=== PATIENT | female | born 1955 | race Two or more races ===

== ENCOUNTER 2016-10-06 18:25 | Emergency (ER) | payer OTHER ==
[2016-10-06 18:38] VITALS: BP 153/82; PULSE 91; TEMP 99.5; BMI 26.6
--- NOTE | 2016-10-06 21:13 | PDOC ---
History of Present Illness - General History Source: Patient Exam Limitations: No Limitations - History of Present Illness Initial Comments: 10/06/16 21:32 The patient is a 61 year old female with no significant past medical history who presents to the ED 5 days of nausea, vomiting, and diarrhea. Patient also reports associated abdominal pain and bloating. States her symptoms are intermittent. Patient reports her last meal was a chicken parmesan, which was 5 days ago, prior to when her symptoms. Since then she has had a decreased appetite. Patient reports nausea, but is still able to intake some fluids. States in the morning she has form stools and as the day goes by, her stool gets softer and softer. In the last 3 days, she has had 3 bowel movements and 2 bowel movements in the past day. The patient denies fever, chills, cough, SOB, chest pain, and palpitations. The patient denies dysuria, hematuria, urgency, and frequency. Allergies: NKDA Social History: No alcohol, tobacco, or drug use reported. Past Surgical History: Denies PCP: n/a <Sasha Gambino - Last Filed: 10/06/16 21:32> - General History Source: Patient <Sebastian Henderson - Last Filed: 10/07/16 00:26> - General Chief Complaint: Vomiting/Diarrhea Stated Complaint: PCP SENT/ABDOMINAL PAIN Time Seen by Provider: 10/06/16 21:09 Past History <Sasha Gambino - Last Filed: 10/06/16 21:32> - Psycho/Social/Smoking Cessation Hx Anxiety: No Suicidal Ideation: No Smoking History: Never smoked Have you smoked in the past 12 months: No Information on smoking cessation initiated: No Hx Alcohol Use: Yes Drug/Substance Use Hx: No Substance Use Type: Alcohol <Jose AlejandromichaelSebastian - Last Filed: 10/07/16 00:26> - Past Medical History Allergies/Adverse Reactions: Allergies Allergy/AdvReac Type Severity Reaction Status Date / Time No Known Allergies Allergy Verified 10/06/16 18:35 Home Medications: Ambulatory Orders Levofloxacin [Levaquin -] 500 mg PO DAILY #7 tablet 10/07/16 Metronidazole [Flagyl] 500 mg PO BID #14 tablet 10/07/16 Ondansetron [Zofran *Odt*] 4 mg SL TID #30 od.tablet 10/07/16 Oxycodone HCl/Acetaminophen [Percocet 5-325 mg Tablet] 1 - 2 tab PO Q6H #20 tablet MDD 4 10/07/16 Review of Systems - Review of Systems Able to Perform ROS?: Yes Comments:: 10/06/16 21:32 CONSTITUTIONAL: +decreased appetite Absent: fever, no chills, no fatigue EYES: Absent: visual changes ENT: Absent: ear pain, no sore throat CARDIOVASCULAR: Absent: chest pain, no palpitations RESPIRATORY: Absent: cough, no SOB GI: +abdominal pain, nausea, vomiting, diarrhea, bloating GENITOURINARY: Absent: dysuria, no frequency, no hematuria MUSCULOSKELETAL: Absent: back pain, no arthralgia, no myalgia SKIN: Absent: rash NEURO: Absent: headache <Sasha Gambino - Last Filed: 10/06/16 21:32> *Physical Exam - Vital Signs Last Vital Signs Temp Pulse Resp BP Pulse Ox 99.5 F 91 H 18 153/82 99 10/06/16 18:35 10/06/16 18:35 10/06/16 18:35 10/06/16 18:35 10/06/16 18:35 - Physical Exam Comments: 10/06/16 21:32 GENERAL: Well developed, well nourished. Awake and alert. Mild distress. HEENT: Normocephalic, atraumatic. PERRL, EOM intact. Slightly dry mucous membranes. CARDIOVASCULAR: Normal S1, S2. Regular rate and rhythm. PULMONARY: Clear to auscultation bilaterally. ABDOMINAL: Soft. Mildly diffuse tenderness. Mildly distended. No rebound or guarding. No organomegaly. Normoactive bowel sounds. EXTREMITIES: Normal ROM in all four extremities. No gross deformities. SKIN: Warm, dry. No rash NEUROLOGICAL: No focal neurological deficits. <Sasha Gambino - Last Filed: 10/06/16 21:32> - Vital Signs Last Vital Signs Temp Pulse Resp BP Pulse Ox 99.5 F 91 H 18 153/82 99 10/06/16 18:35 10/06/16 18:35 10/06/16 18:35 10/06/16 18:35 10/06/16 18:35 <Sebastian Henderson - Last Filed: 10/07/16 00:26> ED Treatment Course - LABORATORY CBC & Chemistry Diagram: 10/06/16 22:10 10/06/16 22:10 <Sebastian Henderson - Last Filed: 10/07/16 00:26> Medical Decision Making - Medical Decision Making 10/07/16 00:24 Dr. Henderson: The scribe's documentation has been prepared under my direction and personally reviewed by me in its entirery. I confirm that the note above accurately reflects all work, treatment, procedures, and medical decision making performed by me. Pt advised to return if symptoms don't improved as [employer] is going down and we won't be able to get studies easily. Pt give antibiotics to treatment for probable Colitis. <Sebastian Henderson - Last Filed: 10/07/16 00:26> *DC/Admit/Observation/Transfer - Attestations Scribe Attestion: 10/06/16 21:33 Documentation prepared by Sasha Gambino, acting as medical technicians for Sebastian Henderson DO. <Sasha Gambino - Last Filed: 10/06/16 21:32> - Discharge Dispostion Admit: No <Sebastian Henderson - Last Filed: 10/07/16 00:26> Diagnosis at time of Disposition: Colitis Abdominal pain Qualifiers: Abdominal location: generalized Qualified Code(s): R10.84 - Generalized abdominal pain - Discharge Dispostion Disposition: HOME Condition at time of disposition: Stable - Referrals Referrals: Tanmay Alexis MD [Staff Physician] - Jer Jules MD [Staff Physician] - - Patient Instructions Printed Discharge Instructions: DI for Colitis, DI for Abdominal Pain-Adult Additional Instructions: Please return if symptoms don't improve so a ct scan can be done. Clinically it appears that you have a Colitis based on your symptoms
[2016-10-06] MEDS ORDERED: SODIUM CHLORIDE 1,000 ML IV STA ×2 (21:16)
[2016-10-06 22:34] LABS: BASOPHIL 0.6 % (0-2.0); EOSINOPHIL 2.5 % (0-4.5); MCHC 33.6 g/dl (32.0-36.0); MEAN CELL VOLUME 89.2 fl (80-96); MEAN PLT VOLUME 9.2 fl (7.5-11.1); NEUTROPHILS 63.1 % (42.8-82.8); PLATELET COUNT 242 K/MM3 (134-434); RDW 13.1 % (11.6-15.6); WHITE BLOOD COUNT 9.5 K/mm3 (4.0-10.0)
[2016-10-06 22:38] LABS: URINE APPEARANCE CLEAR; URINE BILIRUBIN NEGATIVE (NEGATIVE); URINE BLOOD 1+ (NEGATIVE); URINE COLOR LTYELLOW; URINE GLUCOSE (UA) NEGATIVE (NEGATIVE); URINE KETONE NEGATIVE (NEGATIVE); URINE LEUK ESTERASE TRACE (NEGATIVE); URINE NITRITE NEGATIVE (NEGATIVE); URINE PROTEIN NEGATIVE (NEGATIVE); URINE UROBILINOGEN NEGATIVE mg/dL (0.2-1.0)
[2016-10-06 22:55] LABS: URINE MUCUS RARE; URINE RBC 1 /hpf (0-3); URINE WBC 2 /hpf (3-5)
[2016-10-06 23:01] LABS: ANION GAP 11 (8-16); CALCIUM 9.4 mg/dL (8.5-10.1); CO2 26 mmol/L (21-32); CREATININE 0.7 mg/dL (0.55-1.02); GLUCOSE,RANDOM 101 mg/dL (74-106); MAGNESIUM 2.5 mg/dL (1.8-2.4); SGOT/AST 12 U/L (15-37); SGPT/ALT 25 U/L (12-78); TOT PROT 7.9 g/dl (6.4-8.2)
[2016-10-06 23:02] LABS: ALK PHOS 72 U/L (45-117)
[2016-10-07] MEDS ORDERED: metroNIDAZOLE 250 MG TABLET PO ONE (00:18)
[2016-10-07] MEDS ORDERED: LEVOFLOXACIN 500 MG TABLET (FP) PO ONE (00:18)
[2016-10-07] MEDS ORDERED: metroNIDAZOLE 250 MG TABLET ONE (00:33)
[2016-10-07] MEDS ORDERED: LEVOFLOXACIN 500 MG TABLET (FP) ONE (00:33)
== END 2016-10-07 00:34 | disposition home or self-care (01) ==
LOC: JER 18:25
PROC: 3E0337Z Introduction of Electrolytic and Water Balance Substance into Peripheral Vein, Percutaneous Approach (ICD-10-PCS; principal; 2016-10-06)
DX: K52.9 Noninfective gastroenteritis and colitis, unspecified (principal)
CPT/HCPCS: 36415; 80053; 81003; 81015; 83690; 83735; 84703; 85025; 99281-25

== ENCOUNTER 2016-10-09 12:13 | Emergency (ER) | payer OTHER ==
[2016-10-09 12:42] VITALS: TEMP 98.5; BMI 27.4
--- NOTE | 2016-10-09 13:09 | PDOC ---
History of Present Illness - General Chief Complaint: Pain, Acute Stated Complaint: PAIN, REVISIT Time Seen by Provider: 10/09/16 12:54 History Source: Patient Exam Limitations: No Limitations - History of Present Illness Initial Comments: 10/09/16 14:49 The patient is a 61 year old female who was seen in This ED 2 days ago for 5 days of nausea, vomiting, and diarrhea. Patient was diagnosed with colitis and prescribed flagyl and levofloxacin but reports continued diffuse abdominal pressure-like pain and bloating. Patient reports nausea, but is still able to intake some fluids. has bowel movements 3x a day, no blood, normal consistency. The patient denies fever, chills, cough, SOB, chest pain, and palpitations. The patient denies dysuria, hematuria, urgency, and frequency. Past History - Past Medical History Allergies/Adverse Reactions: Allergies Allergy/AdvReac Type Severity Reaction Status Date / Time No Known Allergies Allergy Verified 10/09/16 12:40 Home Medications: Ambulatory Orders Levofloxacin [Levaquin -] 500 mg PO DAILY #7 tablet 10/07/16 Metronidazole [Flagyl] 500 mg PO BID #14 tablet 10/07/16 Ondansetron [Zofran *Odt*] 4 mg SL TID #30 od.tablet 10/07/16 Oxycodone HCl/Acetaminophen [Percocet 5-325 mg Tablet] 1 - 2 tab PO Q6H #20 tablet MDD 4 10/07/16 - Psycho/Social/Smoking Cessation Hx Anxiety: No Suicidal Ideation: No Smoking History: Never smoked Have you smoked in the past 12 months: No Hx Alcohol Use: Yes Drug/Substance Use Hx: No Substance Use Type: Alcohol Review of Systems - Review of Systems Constitutional: No: Symptoms Reported HEENTM: No: Symptoms Reported Respiratory: No: Symptoms reported Cardiac (ROS): No: Symptoms Reported ABD/GI: Yes: See HPI : No: Symptoms Reported Musculoskeletal: No: Symptoms Reported Integumentary: No: Symptoms Reported Neurological: No: Symptoms reported *Physical Exam - Vital Signs Last Vital Signs Temp Pulse Resp BP Pulse Ox 98.5 F 84 19 127/66 98 10/09/16 12:40 10/09/16 12:40 10/09/16 12:40 10/09/16 12:40 10/09/16 12:40 - Physical Exam General Appearance: Yes: Nourished HEENT: positive: EOMI, [place] Neck: positive: Trachea midline, Normal Thyroid. negative: Tender Respiratory/Chest: positive: Lungs Clear, Normal Breath Sounds. negative: Chest Tender Cardiovascular: positive: Regular Rhythm, Regular Rate, S1, S2 Gastrointestinal/Abdominal: positive: Normal Bowel Sounds, Soft, Protuberent. negative: Tender, Rebound, Tenderness ED Treatment Course - LABORATORY CBC & Chemistry Diagram: 10/09/16 13:25 10/09/16 13:25 Medical Decision Making - Medical Decision Making 10/09/16 14:56 61 returns to the ED with continued abdominal pain and bloatedness. Patient evaluated with CTAP with iv and PO contrast. 10/09/16 17:49 iv morphine and po motrin for pain control. 10/09/16 20:30 Bedside ultrasound performed by myself, DIRECTOR OF AGRICULTURE Augustin and Dr. Daniel showing gallstone at neck. CT abdomen positive for liver cyst, cholelithiasis and diverticulosis. Patient discharged, advised to follow up with Donell Amador, GI and discontinue her antibiotics. *DC/Admit/Observation/Transfer Diagnosis at time of Disposition: Abdominal pain, Abdominal pain in female - Discharge Dispostion Disposition: HOME Admit: No - Referrals Referrals: Kobi Marley MD [Staff Physician] - - Patient Instructions Printed Discharge Instructions: DI for Abdominal Pain-Adult
[2016-10-09 14:09] LABS: BASOPHIL 0.8 % (0-2.0); MCH 29.4 pg (25.7-33.7); MCHC 32.6 g/dl (32.0-36.0); MEAN CELL VOLUME 90.2 fl (80-96); MEAN PLT VOLUME 8.3 fl (7.5-11.1); NEUTROPHILS 61.3 % (42.8-82.8); PLATELET COUNT 278 K/MM3 (134-434); RDW 13.1 % (11.6-15.6); WHITE BLOOD COUNT 5.9 K/mm3 (4.0-10.0)
[2016-10-09 14:50] LABS: ALBUMIN 3.8 g/dl (3.4-5.0); ANION GAP 7 (8-16); CALCIUM 9.1 mg/dL (8.5-10.1); CO2 29 mmol/L (21-32); GLUCOSE,RANDOM 89 mg/dL (74-106)
[2016-10-09 14:53] LABS: BILIRUBIN,TOTAL 0.5 mg/dL (0.2-1.0); CREATININE 0.7 mg/dL (0.55-1.02); SGPT/ALT 27 U/L (12-78); TOT PROT 8.2 g/dl (6.4-8.2)
[2016-10-09 14:55] LABS: ALK PHOS 72 U/L (45-117); TROPONIN I < 0.02 ng/ml (0.00-0.05)
[2016-10-09 14:56] LABS: CPK 132 IU/L (26-192); SGOT/AST 29 U/L (15-37)
--- NOTE | 2016-10-09 16:00 | PDOC ---
Attending Attestation - Resident Resident Name: Han Alvarado - ED Attending Attestation I have performed the following: I have examined & evaluated the patient, The case was reviewed & discussed with the resident, I agree w/resident's findings & plan, Exceptions are as noted - HPI HPI: 10/09/16 15:56 "Patient is a 61 year old female with no significant past medical history who presents to the ED with complaints of bloating and stomach pain starting 1 week prior to arrival. Patient reports eating eggplant and salad at restaurant last and subsequently developed vomiting and diarrhea for two days. She denies F/C. States that the vomiting and diarrhea resolved, but she reports still feeling nauseous. Patient reports looking 9 months yesterday secondary to bloating. She was seen in this ER 2 days ago and prescribed abx for possible colitis. Reports that she has been taking the abx, but she has not noticed any improvement in her bloating. Pt denies prior surgical history. Still having normal BMs, still passing flatus. Denies chest pain, SOB, dizziness. Denies fever, chills, vomiting (since last week). Denies any medication taken, surgeries. Denies any other symptoms. " - Physicial Exam PE: 10/09/16 15:58 "GENERAL: Awake, alert, and fully oriented, in no acute distress HEAD: No signs of trauma EYES: PERRLA, EOMI, sclera anicteric, conjunctiva clear ENT: Auricles normal inspection, hearing grossly normal, nares patent, oropharynx clear without exudates. Moist mucosa NECK: Normal ROM, supple, no lymphadenopathy, JVD, or masses LUNGS: Breath sounds equal, clear to auscultation bilaterally. No wheezes, and no crackles HEART: Regular rate and rhythm, normal S1 and S2, no murmurs, rubs or gallops ABDOMEN: + Mildly distended abdomen. No tenderness to palpations. Soft, nontender, normoactive bowel sounds. No guarding, no rebound. No masses EXTREMITIES: Normal range of motion, no edema. No clubbing or cyanosis. No cords, erythema, or tenderness NEUROLOGICAL: Cranial nerves II through XII grossly intact. Normal speech, normal gait SKIN: Warm, Dry, normal turgor, no rashes or lesions noted." - Medical Decision Making 10/09/16 15:59 61 F with abdominal bloating and nausea. Pt with benign abdominal exam. Pt had N /V/D last week, suggestive of viral gastroenteritis. Pt's symptoms today are likely sequelae of this. However, given duration of symptoms, will obtain CTAP to r/o acute abdominal process. - labs - CTAP
[2016-10-09] MEDS ORDERED: IBUPROFEN 400 MG TABLET (FP) PO ONE ×2 (17:22→17:28)
[2016-10-09 17:23] VITALS: BP 150/87; PULSE 71
[2016-10-09] MEDS ORDERED: morphine CARPU-JECT 2 MG/1 ML DISP.SYRIN IVPUSH ONE (17:24)
[2016-10-09] MEDS ORDERED: morphine CARPU-JECT 2 MG/1 ML DISP.SYRIN ONE (17:28)
--- NOTE | 2016-10-09 20:29 | PDOC ---
*Physical Exam - Vital Signs Last Vital Signs Temp Pulse Resp BP Pulse Ox 98.5 F 71 17 150/87 97 10/09/16 12:40 10/09/16 17:22 10/09/16 17:22 10/09/16 17:22 10/09/16 17:22 - Physical Exam General Appearance: Yes: Nourished, Appropriately Dressed Neck: positive: Trachea midline Respiratory/Chest: positive: Lungs Clear, Normal Breath Sounds Cardiovascular: positive: Regular Rhythm, Regular Rate Gastrointestinal/Abdominal: positive: Normal Bowel Sounds, Flat, Soft. negative : Tender ED Treatment Course - LABORATORY CBC & Chemistry Diagram: 10/09/16 13:25 10/09/16 13:25 - ADDITIONAL ORDERS Additional order review: Laboratory Results 10/09/16 10/09/16 13:25 13:25 Sodium 138 Potassium 5.3 H D Chloride 102 Carbon Dioxide 29 Anion Gap 7 L BUN 16 D Creatinine 0.7 Creat Clearance w eGFR > 60 Random Glucose 89 Calcium 9.1 Total Bilirubin 0.5 D AST 29 D ALT 27 Alkaline Phosphatase 72 Creatine Kinase Cancelled 132 Troponin I Cancelled < 0.02 Total Protein 8.2 Albumin 3.8 10/09/16 13:25 RBC 4.15 MCV 90.2 MCHC 32.6 RDW 13.1 MPV 8.3 Neutrophils % 61.3 Lymphocytes % 27.1 Monocytes % 8.8 Eosinophils % 2.0 Basophils % 0.8 - Medications Given in the ED: ED Medications Discontinued Medications Generic Name Dose Route Start Last Admin Trade Name Freq PRN Reason Stop Dose Admin Ibuprofen 800 mg 10/09/16 17:22 10/09/16 17:35 Motrin - PO 10/09/16 17:23 800 mg ONCE ONE Administration Morphine Sulfate 2 mg 10/09/16 17:24 10/09/16 17:36 Morphine Injection - IVPUSH 10/09/16 17:25 2 mg ONCE ONE Administration Medical Decision Making - Medical Decision Making 10/09/16 20:26 focused ED ultrasound RUQ , indication abd pain findings: gallbladder scanned in two planes. large 2 cm stone noted, mobile with rolling patient. no wall thickening edema or pericholecystic fluid noted. negative sonographics casillas's sign. wall measured 3.9mm CBD 6.1mm impression: cholelithiasis with single large 2 cm gallstone, nonimpacted. cirilli d/w pt and her sister at length regarding recent bloating sensation. ct reviewed. no signs of colitis or or diverticulitis. noted small adnexal cyst, and cyst in the liver. recommend discontinueing antiobtiocs. recommend [facility] [employer] and GI followup. abd exam nontender. will dc home. *DC/Admit/Observation/Transfer Diagnosis at time of Disposition: Abdominal pain - Discharge Dispostion Disposition: HOME Condition at time of disposition: Improved Admit: No
--- NOTE | 2016-10-11 21:49 | EKG ---
Test Reason : Blood Pressure : / mmHG Vent. Rate : 067 BPM Atrial Rate : 067 BPM P-R Int : 146 ms QRS Dur : 092 ms QT Int : 408 ms P-R-T Axes : 052 011 041 degrees QTc Int : 431 ms NORMAL SINUS RHYTHM NORMAL ECG NO PREVIOUS ECGS AVAILABLE Confirmed by ADONIS GRACE MD ([id number]) on 10/11/2016 9:48:52 PM Referred By: Confirmed By:ADONIS GRACE MD
== END 2016-10-09 20:40 | disposition home or self-care (01) ==
LOC: JER 12:13
PROC: 3E033NZ Introduction of Analgesics, Hypnotics, Sedatives into Peripheral Vein, Percutaneous Approach (ICD-10-PCS; principal; 2016-10-09)
DX: K80.20 Calculus of gallbladder without cholecystitis without obstruction (principal)
CPT/HCPCS: 36415; 74177-TC; 80053; 84484; 85025; 93005; 93010; 99284-25

== ENCOUNTER 2019-02-25 09:24 | Inpatient (IN) | payer BC, OTHER ==
[2019-02-25 09:30] VITALS: BMI 27.4
[2019-02-25] MEDS ORDERED: ACETAMINOPHEN 1000 MG/100 ML VIAL (NON FORMULARY) IVPB ONE (09:41)
[2019-02-25] MEDS ORDERED: FAMOTIDINE 20 MG/50 ML IVPB 20 MG/50 ML MG IVPB ONE ×2 (09:41→09:56)
[2019-02-25] MEDS ORDERED: SODIUM CHLORIDE 1,000 ML IV STA (09:41)
[2019-02-25] MEDS ORDERED: ONDANSETRON 4 MG/2 ML VIAL IVPB ONE (09:41)
--- NOTE | 2019-02-25 09:46 | PDOC ---
Attending Attestation - Resident Resident Name: Coco Singh - ED Attending Attestation I have performed the following: I have examined & evaluated the patient, The case was reviewed & discussed with the resident, I agree w/resident's findings & plan, Exceptions are as noted - HPI HPI: 02/25/19 09:44 Ms Lucero is a 63 yo F who presents to the ER with a complaint of abdominal pain , n/v x2 days. Pain began night, and since then has been constant (+) emesis x 2 Pt notes RLQ pain and lower back pain Seen at [facility] yesterday She was seen at the urgent care yesterday and sent for an out patient CT scan CT performed on 02/24 revealed: - Hepatic cysts - GB wall thickening, no stones seen - spleen nml - Right adnexal cyst - Appendix unremarkable 02/25/19 10:31 Last BM was yesterday. Denies fever, chills, chest pain, sob, abdominal surgeries, weakness, numbness/tingling, urinary symptoms. 02/25/19 13:03 - Physicial Exam PE: 02/25/19 09:44 GENERAL: The patient is in no acute distress. ENT: Ears normal, nares patent, oropharynx clear without exudates. Moist mucous membranes. NECK: Normal range of motion, supple LUNGS: Breath sounds equal, clear to auscultation bilaterally. No wheezes, and no crackles. HEART:Regular rate and rhythm, normal S1 and S2 without murmur, rub or gallop. ABDOMEN: Soft, RUQ tenderness to palpation, involuntary guarding or rebound EXTREMITIES: Normal range of motion, no edema. NEUROLOGICAL: Cranial nerves II through XII grossly intact. Normal speech. No focal neurological deficits. SKIN: Warm, Dry, normal turgor, no rashes or lesions noted. - Medical Decision Making 02/25/19 13:05 Laboratory Tests 02/25/19 02/25/19 02/25/19 10:00 10:00 10:00 WBC 12.4 H Hgb 12.6 Hct 38.8 Plt Count 198 D BUN 18.0 Creatinine 0.9 Troponin I < 0.02 Urine Blood Urine Nitrite Ur Leukocyte Esterase 02/25/19 11:36 WBC Hgb Hct Plt Count BUN Creatinine Troponin I Urine Blood Negative Urine Nitrite Negative Ur Leukocyte Esterase 1+ H US: GB with cholelithiasis, gb wall thickening, small PCCF 02/25/19 13:06 ABX ordered Call placed to Hospitalist for admission Consult to surgery Clinical impression: cholecystitis, initial presentation
[2019-02-25] MEDS ORDERED: ACETAMINOPHEN INJECTION 100 ML IVPB ONE (09:55)
[2019-02-25] MEDS ORDERED: ONDANSETRON 4 MG/2 ML VIAL ONE (09:55)
[2019-02-25 10:52] LABS: BASO % 0.3 % (0-2.0); EOS % 0.4 % (0-4.5); HEMATOCRIT 38.8 % (32.4-45.2); HEMOGLOBIN 12.6 GM/dL (10.7-15.3); LYMPH % 12.4 % (8-40); MCH 29.3 pg (25.7-33.7); MCHC 32.5 g/dl (32.0-36.0); MEAN CELL VOLUME 90.3 fl (80-96); MEAN PLT VOLUME 9.8 fl (7.5-11.1); MONO % 10.6 % (3.8-10.2); NEUT % 76.3 % (42.8-82.8); PLATELET COUNT 198 K/MM3 (134-434); RBC 4.29 M/mm3 (3.60-5.2); WHITE BLOOD COUNT 12.4 K/mm3 (4.0-10.0)
[2019-02-25 11:08] LABS: ALBUMIN 3.9 g/dl (3.4-5.0); BILIRUBIN,TOTAL 1.8 mg/dL (0.2-1); CALCIUM 9.2 mg/dL (8.5-10.1); CREATININE 0.9 mg/dL (0.55-1.3); POTASSIUM 4.3 mmol/L (3.5-5.1); TOT PROT 7.5 g/dl (6.4-8.2)
--- NOTE | 2019-02-25 11:08 | PDOC ---
History of Present Illness - General Chief Complaint: Nausea/Vomiting Stated Complaint: VOMITING Time Seen by Provider: 02/25/19 09:36 History Source: Patient Exam Limitations: No Limitations - History of Present Illness Initial Comments: 02/25/19 12:24 63y F with no significant PMH presenting to ED with complaints of lower abdominal pain, n/v x2 days. Pain started night and has been constant. Patient has vomited twice (nbnb). Pain is sharp, in the RLQ and lower back. She went to [facility] yesterday and had a CT done which showed gall stones, dilated cbd, thickened gb wall and a complex cyst in the R ovary. Pt has been taking Pepcid and Tylenol for the pain but it has not helped. Pt has not vomited today , had coffee and toast for breakfast at 730am. Last BM was yesterday. Denies fever, chills, chest pain, sob, abdominal surgeries, weakness, numbness/tingling , urinary symptoms. PMD: none PSH: none PMH: none Allergies: nkda Social: denies Past History - Past Medical History Allergies/Adverse Reactions: Allergies Allergy/AdvReac Type Severity Reaction Status Date / Time No Known Allergies Allergy Verified 10/09/16 12:40 Home Medications: Ambulatory Orders NK [No Known Home Medication] 02/25/19 COPD: No - Surgical History Cardiac Surgery: No - Immunization History Immunization Up to Date: No - Psycho Social/Smoking Cessation Hx Smoking History: Never smoked Have you smoked in the past 12 months: No Information on smoking cessation initiated: No Hx Alcohol Use: No Drug/Substance Use Hx: No Substance Use Type: Alcohol *Physical Exam - Vital Signs Last Vital Signs Temp Pulse Resp BP Pulse Ox 98.8 F 89 16 124/72 99 02/25/19 09:28 02/25/19 09:28 02/25/19 09:28 02/25/19 09:28 02/25/19 09:28 ED Treatment Course - LABORATORY CBC & Chemistry Diagram: 02/25/19 10:00 02/25/19 10:00 - ADDITIONAL ORDERS Additional order review: 02/25/19 10:00 RBC 4.29 MCV 90.3 MCHC 32.5 RDW 13.0 MPV 9.8 D Neutrophils % 76.3 D Lymphocytes % 12.4 D Monocytes % 10.6 H Eosinophils % 0.4 Basophils % 0.3 - RADIOLOGY Radiology Studies Ordered: Category Date Time Status ABDOMEN US -LIMITED [US] Stat Ultrasound 02/25/19 10:43 Ordered TRANSVAGINAL ULTRASOUND US [US] Stat Ultrasound 02/25/19 10:43 Ordered - Medications Given in the ED: ED Medications Discontinued Medications Generic Name Dose Route Start Last Admin Trade Name Freq PRN Reason Stop Dose Admin Acetaminophen 1,000 mg 02/25/19 09:41 02/25/19 10:26 Ofirmev Injection - IVPB 02/25/19 09:42 1,000 mg ONCE ONE Administration Famotidine/Sodium Chloride 20 mg in 50 mls @ 100 mls/hr 02/25/19 09:41 10:00 Pepcid 20 Mg Premixed Ivpb - IVPB 02/25/19 10:10 100 mls/hr ONCE ONE Administration Sodium Chloride 1,000 mls @ 1,000 mls/hr 02/25/19 09:41 02/25/19 10:00 Normal Saline - IV 02/25/19 10:40 1,000 mls/hr ASDIR STA Administration Ondansetron HCl 4 mg 02/25/19 09:41 02/25/19 10:00 Zofran Injection IVPB 02/25/19 09:42 4 mg ONCE ONE Administration Discharge - Discharge Information Condition: Stable - Follow up/Referral - Patient Discharge Instructions - Post Discharge Activity
[2019-02-25 11:28] LABS: LIPASE 98 U/L (73-393)
[2019-02-25 11:55] LABS: EPI CELLS 0.8 /HPF (0-5/HPF); HYALINE CASTS 0 /lpf (0-8); PH,URINE 6.5 (5.0-8.0); URINE APPEARANCE CLEAR; URINE BACTERIA 8.2 /hpf (NEGATIVE); URINE BILIRUBIN NEGATIVE (NEGATIVE); URINE COLOR YELLOW; URINE GLUCOSE (UA) NEGATIVE (NEGATIVE); URINE KETONE NEGATIVE (NEGATIVE); URINE LEUK ESTERASE 1+ (NEGATIVE); URINE NITRITE NEGATIVE (NEGATIVE); URINE PROTEIN NEGATIVE (NEGATIVE); URINE RBC 3 /hpf (0-4); URINE WBC 5 /hpf (0-5)
[2019-02-25] MEDS ORDERED: CEFTRIAXONE 1 GM in DEXTROSE 5%-WATER - 100 ML IVPB ONE (12:34)
[2019-02-25] MEDS ORDERED: CEFTRIAXONE 1 GM/50 ML BAG ONE (12:57)
[2019-02-25] MEDS: DEXTROSE 5%-0.45% SALINE 1,000 ML IV SCH (13:42)
--- NOTE | 2019-02-25 15:09 | EKG ---
Test Reason : Blood Pressure : / mmHG Vent. Rate : 087 BPM Atrial Rate : 087 BPM P-R Int : 128 ms QRS Dur : 092 ms QT Int : 388 ms P-R-T Axes : 044 006 043 degrees QTc Int : 466 ms POOR DATA QUALITY, INTERPRETATION MAY BE ADVERSELY AFFECTED SINUS RHYTHM WITH OCCASIONAL PREMATURE VENTRICULAR COMPLEXES INCOMPLETE RIGHT BUNDLE BRANCH BLOCK BORDERLINE ECG WHEN COMPARED WITH ECG OF 09-OCT-2016 14:34, PREMATURE VENTRICULAR COMPLEXES ARE NOW PRESENT Confirmed by ISH GRIFFITH MD ([id number]) on 02/25/2019 3:08:36 PM Referred By: Confirmed By:ISH GRIFFITH MD
--- NOTE | 2019-02-25 17:50 | HP ---
CHIEF COMPLAINT: Abdominal pain PCP: None HISTORY OF PRESENT ILLNESS: 63y F with no significant PMH presenting to ED with complaints of lower abdominal pain, n/v x2 days. Pain started night and has been constant. Patient has vomited twice (nbnb). Pain is sharp, in the RLQ and lower back. She went to [facility] yesterday and had a CT done which showed gall stones, dilated cbd, thickened gb wall and a complex cyst in the R ovary. Pt has been taking Pepcid and Tylenol for the pain but it has not helped. Pt has not vomited today , had coffee and toast for breakfast at 730am. Last BM was yesterday. Denies fever, chills, chest pain, sob, abdominal surgeries, weakness, numbness/tingling , urinary symptoms. In the ER she had abdominal ultrasound done which shows acute cholecystitis and fluid around the gallbladder. ER course was notable for: (1) visit to urgent care center yesterday (2) abdominal CAT scan (3) recent pain Recent Travel: None PAST MEDICAL HISTORY: None PAST SURGICAL HISTORY: None Social History: Denies alcohol smoking or drug use Smoking: Alcohol: Drugs: Allergies No Known Allergies Allergy (Verified 10/09/16 12:40) HOME MEDICATIONS: Home Medications Medication Instructions Recorded NK [No Known Home Medication] 02/25/19 REVIEW OF SYSTEMS CONSTITUTIONAL: Absent: fever, chills, diaphoresis, generalized weakness, malaise, loss of appetite, weight change HEENT: Absent: rhinorrhea, nasal congestion, throat pain, throat swelling, difficulty swallowing, mouth swelling, ear pain, eye pain, visual changes CARDIOVASCULAR: Absent: chest pain, syncope, palpitations, irregular heart rate, lightheadedness , peripheral edema RESPIRATORY: Absent: cough, shortness of breath, dyspnea with exertion, orthopnea, wheezing, stridor, hemoptysis GASTROINTESTINAL: Positive abdominal pain vomiting and loss of appetite. GENITOURINARY: Absent: dysuria, frequency, urgency, hesitancy, hematuria, flank pain, genital pain MUSCULOSKELETAL: Absent: myalgia, arthralgia, joint swelling, back pain, neck pain SKIN: Absent: rash, itching, pallor HEMATOLOGIC/IMMUNOLOGIC: Absent: easy bleeding, easy bruising, lymphadenopathy, frequent infections ENDOCRINE: Absent: unexplained weight gain, unexplained weight loss, heat intolerance, cold intolerance NEUROLOGIC: Absent: headache, focal weakness or paresthesias, dizziness, unsteady gait, seizure, mental status changes, bladder or bowel incontinence PSYCHIATRIC: Absent: anxiety, depression, suicidal or homicidal ideation, hallucinations. PHYSICAL EXAMINATION Vital Signs - 24 hr 02/25/19 02/25/19 02/25/19 09:28 14:27 15:30 Temperature 98.8 F 98.1 F 98.1 F Pulse Rate 89 Pulse Rate [ 89 82 Left Radial] Respiratory 16 18 18 Rate Blood Pressure 124/72 Blood Pressure 107/59 L 118/54 L [Right Arm] O2 Sat by Pulse 99 97 97 Oximetry (%) GENERAL: Awake, alert, and fully oriented, in no acute distress. HEAD: Normal with no signs of trauma. EYES: Pupils equal, round and reactive to light, extraocular movements intact, sclera anicteric, conjunctiva clear. No lid lag. EARS, NOSE, THROAT: Ears normal, nares patent, oropharynx clear without exudates. Moist mucous membranes. NECK: Normal range of motion, supple without lymphadenopathy, JVD, or masses. LUNGS: Breath sounds equal, clear to auscultation bilaterally. No wheezes, and no crackles. No accessory muscle use. HEART: Regular rate and rhythm, normal S1 and S2 without murmur, rub or gallop. ABDOMEN: She tender right upper quadrant of abdomen and rebound slightly and guarding present bowel sounds are normal MUSCULOSKELETAL: Normal range of motion at all joints. No bony deformities or tenderness. No CVA tenderness. UPPER EXTREMITIES: 2+ pulses, warm, well-perfused. No cyanosis. No clubbing. No peripheral edema. LOWER EXTREMITIES: 2+ pulses, warm, well-perfused. No calf tenderness. No peripheral edema. NEUROLOGICAL: Cranial nerves II-XII intact. Normal speech. Normal gait. PSYCHIATRIC: Cooperative. Good eye contact. Appropriate mood and affect. SKIN: Warm, dry, normal turgor, no rashes or lesions noted, normal capillary refill. Laboratory Results - last 24 hr 02/25/19 02/25/19 02/25/19 10:00 10:00 10:00 WBC 12.4 H RBC 4.29 Hgb 12.6 Hct 38.8 MCV 90.3 MCH 29.3 MCHC 32.5 RDW 13.0 Plt Count 198 D MPV 9.8 D Absolute Neuts (auto) 9.4 H Neutrophils % 76.3 D Lymphocytes % 12.4 D Monocytes % 10.6 H Eosinophils % 0.4 Basophils % 0.3 Nucleated RBC % 0 Sodium 136 Potassium 4.3 Chloride 102 Carbon Dioxide 28 Anion Gap 7 L BUN 18.0 Creatinine 0.9 Est GFR (CKD-EPI)AfAm 78.87 Est GFR (CKD-EPI)NonAf 68.05 Random Glucose 107 H Lactic Acid Calcium 9.2 Total Bilirubin 1.8 H AST 12 L ALT 22 Alkaline Phosphatase 74 Troponin I < 0.02 Total Protein 7.5 Albumin 3.9 Lipase 98 Urine Color Urine Appearance Urine pH Ur Specific [place] Urine Protein Urine Glucose (UA) Urine Ketones Urine Blood Urine Nitrite Urine Bilirubin Urine Urobilinogen Ur Leukocyte Esterase Urine WBC (Auto) Urine RBC (Auto) Urine Casts (Auto) U Epithel Cells (Auto) Urine Bacteria (Auto) 02/25/19 02/25/19 10:00 11:36 WBC RBC Hgb Hct MCV MCH MCHC RDW Plt Count MPV Absolute Neuts (auto) Neutrophils % Lymphocytes % Monocytes % Eosinophils % Basophils % Nucleated RBC % Sodium Potassium Chloride Carbon Dioxide Anion Gap BUN Creatinine Est GFR (CKD-EPI)AfAm Est GFR (CKD-EPI)NonAf Random Glucose Lactic Acid 1.3 Calcium Total Bilirubin AST ALT Alkaline Phosphatase Troponin I Total Protein Albumin Lipase Urine Color Yellow Urine Appearance Clear Urine pH 6.5 Ur Specific [place] 1.009 L Urine Protein Negative Urine Glucose (UA) Negative Urine Ketones Negative Urine Blood Negative Urine Nitrite Negative Urine Bilirubin Negative Urine Urobilinogen 1.0 Ur Leukocyte Esterase 1+ H Urine WBC (Auto) 5 Urine RBC (Auto) 3 Urine Casts (Auto) 0 U Epithel Cells (Auto) 0.8 Urine Bacteria (Auto) 8.2 CBC, BMP 02/25/19 10:00 02/25/19 10:00 Abdominal ultrasound shows abnormal gallbladder with largest measures 1.15 m thickened wall and gallstones there is fluid around the gallbladder Also had a pelvic sonogram which showed multiple cysts in the ovaries ASSESSMENT/PLAN: 64-year-old lady with right upper quadrant pain high white cell count loss of appetite possibly acute cholecystitis. Admit to the hospital IV fluid n.p.o. surgical evaluation for possible cholecystectomy IV antibiotic Flagyl and ceftriaxone and DVT prophylaxis MARISSA stockings but because she is going for surgery tomorrow so no heparin this time. Discussed with surgeon in detail about surgery. Visit type - Emergency Visit Emergency Visit: Yes ED Registration Date: 02/25/19 Care time: The patient presented to the Emergency Department on the above date and was hospitalized for further evaluation of their emergent condition. - New Patient This patient is new to me today: Yes Date on this admission: 02/25/19 - Critical Care Critical Care patient: No
[2019-02-25] MEDS: ACETAMINOPHEN 325 MG TABLET (FP) PO PRN (18:46)
[2019-02-26] MEDS: DEXTROSE 5%-0.45% SALINE 1,000 ML IV SCH ×2 (00:53→16:25)
[2019-02-26] MEDS: ACETAMINOPHEN 325 MG TABLET (FP) PO PRN ×2 (05:20→12:15)
[2019-02-26 07:36] LABS: BASO % 0.2 % (0-2.0); EOS % 0.3 % (0-4.5); HEMATOCRIT 33.2 % (32.4-45.2); LYMPH % 7.2 % (8-40); MCH 29.5 pg (25.7-33.7); MCHC 33.1 g/dl (32.0-36.0); MEAN CELL VOLUME 89.3 fl (80-96); MEAN PLT VOLUME 9.3 fl (7.5-11.1); MONO % 9.8 % (3.8-10.2); NEUT % 82.5 % (42.8-82.8); PLATELET COUNT 166 K/MM3 (134-434); RBC 3.72 M/mm3 (3.60-5.2); RDW 13.1 % (11.6-15.6); WHITE BLOOD COUNT 12.7 K/mm3 (4.0-10.0)
[2019-02-26 07:40] LABS: ALBUMIN 3.2 g/dl (3.4-5.0); BILIRUBIN,TOTAL 1.3 mg/dL (0.2-1); BLOOD UREA NITROGEN 8.9 mg/dL (7-18); CALCIUM 8.5 mg/dL (8.5-10.1); CREATININE 0.7 mg/dL (0.55-1.3); POTASSIUM 3.6 mmol/L (3.5-5.1); TOT PROT 6.4 g/dl (6.4-8.2)
[2019-02-26] MEDS ORDERED: DEXTROSE 5%-WATER - 50 ML IVPB ONE ×3 (08:57→17:02)
[2019-02-26] MEDS ORDERED: cefTRIAXone SODIUM 1 GM VIAL ONE (08:57)
[2019-02-26] MEDS ORDERED: CEFTRIAXONE 1 GM in DEXTROSE 5%-WATER - 50 ML IVPB SCH (10:00)
--- NOTE | 2019-02-26 11:53 | PN ---
Progress Note (short form) - Note Progress Note: surgery 63f with n/v, diarrhea after eating fried chicken yesterday, negative outpt ct at other institution, u/s with gallstones, thk wall, stones. pt is febrile here on rocephin and flagyl. abd- soft, localized rlq tenderness. no ruq tenderness. pt only complains of rlq pain. diarrhea and vomiting resolved. plan- concern for appendicitis. will repeat ct here. would get HIDA. would change abx to zosyn. ID eval.
[2019-02-26] MEDS ORDERED: PIPERACILLIN/TAZOB 3.375 GM 3.375 GM in DEXTROSE 5%-WATER - 50 ML IVPB SCH ×2 (12:00→18:00)
[2019-02-26] MEDS ORDERED: PIPERACILLIN/TAZOBACTAM 3.375 GM VIAL IVPB ONE ×2 (12:06→17:01)
--- NOTE | 2019-02-26 13:04 | EKG ---
Test Reason : Blood Pressure : / mmHG Vent. Rate : 087 BPM Atrial Rate : 087 BPM P-R Int : 126 ms QRS Dur : 092 ms QT Int : 370 ms P-R-T Axes : 042 006 038 degrees QTc Int : 445 ms SINUS RHYTHM WITH OCCASIONAL PREMATURE VENTRICULAR COMPLEXES OTHERWISE NORMAL ECG WHEN COMPARED WITH ECG OF 25-FEB-2019 09:49, NO SIGNIFICANT CHANGE WAS FOUND Confirmed by ISH GRIFFITH MD ([id number]) on 02/26/2019 1:04:25 PM Referred By: Ted DE LA CRUZ Confirmed By:ISH GRIFFITH MD
--- NOTE | 2019-02-26 13:18 | CON.ID ---
Consult Consult Specialty:: infectious diseases Referred by:: devorah Reason for Consultation:: abd pain,ac choley - History of Present Illness Chief Complaint: abd pain History of Present Illness: 63y F with no significant PMH presenting to ED with complaints of lower abdominal pain, n/v x2 days. Pain started night and has been constant. Patient has vomited twice (nbnb). Pain is sharp, in the RLQ and lower back. She went to [facility] yesterday and had a CT done which showed gall stones, dilated cbd, thickened gb wall and a complex cyst in the R ovary. Pt has been taking Pepcid and Tylenol for the pain but it has not helped. Pt has not vomited today , had coffee and toast for breakfast at 730am. Last BM was yesterday. Denies fever, chills, chest pain, sob, abdominal surgeries, weakness, numbness/tingling , urinary symptoms. In the ER she had abdominal ultrasound done which shows acute cholecystitis and fluid around the gallbladder. - History Source History Provided By: Patient Limitations to Obtaining History: No Limitations - Past Medical History ...: No - Alcohol/Substance Use Hx Alcohol Use: No - Smoking History Smoking history: Never smoked Have you smoked in the past 12 months: No Home Medications - Allergies Allergies/Adverse Reactions: Allergies Allergy/AdvReac Type Severity Reaction Status Date / Time No Known Allergies Allergy Verified 10/09/16 12:40 - Home Medications Home Medications: Ambulatory Orders Amoxicillin/Potassium Clav [Augmentin 875-125 Tablet] 1 each PO BID 5 Days #10 tablet 02/28/19 Review of Systems - Review of Systems Constitutional: reports: No Symptoms Eyes: reports: No Symptoms HENT: reports: No Symptoms Neck: reports: No Symptoms Cardiovascular: reports: No Symptoms Respiratory: reports: No Symptoms Gastrointestinal: reports: Abdominal Pain Genitourinary: reports: No Symptoms Musculoskeletal: reports: No Symptoms Integumentary: reports: No Symptoms Neurological: reports: No Symptoms Endocrine: reports: No Symptoms Hematology/Lymphatic: reports: No Symptoms Psychiatric: reports: No Symptoms Physical Exam Vital Signs: Vital Signs Temperature 99.3 F 02/26/19 09:00 Pulse Rate 83 02/26/19 09:00 Respiratory Rate 16 02/26/19 09:00 Blood Pressure 123/64 02/26/19 09:00 O2 Sat by Pulse Oximetry (%) 96 02/26/19 09:00 Constitutional: Yes: Well Nourished, Calm, Mild Distress, Obese Eyes: Yes: Conjunctiva Clear Cardiovascular: Yes: Regular Rate and Rhythm Respiratory: Yes: Regular, CTA Bilaterally Gastrointestinal: Yes: Soft, Hypoactive Bowel Sounds, Tenderness (ruq and rlq) Musculoskeletal: Yes: WNL Extremities: Yes: WNL Neurological: Yes: Alert, Oriented Psychiatric: Yes: Alert, Oriented Labs: CBC, BMP 02/26/19 06:40 02/26/19 06:40 Imaging - Results Chest X-ray: Report Reviewed, Image Reviewed Cat Scan: Report Reviewed, Image Reviewed Ultrasound: Report Reviewed, Image Reviewed Assessment/Plan Problem List - Problems (1) Acute cholecystitis Code(s): K81.0 - ACUTE CHOLECYSTITIS (2) Abdominal pain Code(s): R10.9 - UNSPECIFIED ABDOMINAL PAIN (3) Prophylactic measure Code(s): Z29.9 - ENCOUNTER FOR PROPHYLACTIC MEASURES, UNSPECIFIED 4 obesity plan abx surgery on case npo hydration rest as per the team
--- NOTE | 2019-02-26 13:18 | PN ---
Physical Exam: SUBJECTIVE: Patient seen and examined at the bedside. awake, alert, verbalizing pain of right lower quad. OBJECTIVE: Patient is a 63 year old female who presents to the ED on 02/25/19 with acute RLQ pain. In the ER she had abdominal ultrasound done which shows acute cholecystitis and fluid around the gallbladder. abdomen/ct 02/26/19 shows suspicison for acute colt, no evidence of acute appendicitis. Vital Signs Period Temp Pulse Resp BP Sys/Benavidez Pulse Ox Last 24 Hr 98.1 F-101.2 F 70-96 16-20 118-137/54-77 96-98 GENERAL: The patient is awake, alert, and fully oriented, in no acute distress. report discomfort and pain or rlq 6/10. HEAD: Normal with no signs of trauma. EYES: PERRL, extraocular movements intact, sclera anicteric, conjunctiva clear. No ptosis. ENT: Ears normal, nares patent, oropharynx clear without exudates, moist mucous membranes. NECK: Trachea midline, full range of motion, supple. LUNGS: Breath sounds equal, clear to auscultation bilaterally, no wheezes HEART: Regular rate and rhythm ABDOMEN: soft, non tender, non distended, RLQ with pain on light palpation of abdomen, denies nausea or vomiting EXTREMITIES: 2+ pulses, warm, well-perfused, no edema. NEUROLOGICAL: Normal speech, gait not observed. PSYCH: Normal mood, normal affect. Laboratory Results - last 24 hr 02/26/19 02/26/19 06:40 06:40 WBC 12.7 H RBC 3.72 Hgb 11.0 Hct 33.2 MCV 89.3 MCH 29.5 MCHC 33.1 RDW 13.1 Plt Count 166 MPV 9.3 Absolute Neuts (auto) 10.5 H Neutrophils % 82.5 Lymphocytes % 7.2 L D Monocytes % 9.8 Eosinophils % 0.3 Basophils % 0.2 Nucleated RBC % 0 Sodium 136 Potassium 3.6 Chloride 104 Carbon Dioxide 27 Anion Gap 5 L BUN 8.9 Creatinine 0.7 Est GFR (CKD-EPI)AfAm 106.87 Est GFR (CKD-EPI)NonAf 92.21 Random Glucose 117 H Calcium 8.5 Total Bilirubin 1.3 H AST 10 L ALT 17 Alkaline Phosphatase 64 Total Protein 6.4 Albumin 3.2 L Active Medications Generic Name Dose Route Start Last Admin Trade Name Freq PRN Reason Stop Dose Admin Acetaminophen 650 mg 02/25/19 18:10 02/26/19 12:15 Tylenol - PO 650 mg Q6H PRN Administration FEVER Dextrose/Sodium Chloride 1,000 mls @ 100 mls/hr 02/25/19 13:15 02/26/19 00:53 D5-1/2ns - IV 100 mls/hr ASDIR TYREE Administration Piperacillin Sod/Tazobactam 50 mls @ 100 mls/hr 02/26/19 12:00 02/26/19 12:15 Sod 3.375 gm/ Dextrose IVPB 02/27/19 02:29 100 mls/hr Q8H-IV TYREE Administration Protocol Piperacillin Sod/Tazobactam 50 mls @ 100 mls/hr 02/26/19 18:00 Sod 3.375 gm/ Dextrose IVPB Q8H-IV TYREE Protocol ASSESSMENT/PLAN: Problem List - Problems (1) Acute cholecystitis Assessment/Plan: RLQ pain and tenderness on zosyn, IVF and pain management surgery to evaluate maintain NPO pre op labs ordered Code(s): K81.0 - ACUTE CHOLECYSTITIS (2) Abdominal pain Assessment/Plan: abdominal ultrasound done which shows acute cholecystitis and fluid around the gallbladder. abdomen/ct 02/26/19 shows suspicion for acute colt, no evidence of acute appendicitis. on zosyn, surgery to see for surgical intervention maintain on emperic zosyn Code(s): R10.9 - UNSPECIFIED ABDOMINAL PAIN (3) Prophylactic measure Assessment/Plan: d5 1/2 ns monitor electrolytes npo for surgery full code Code(s): Z29.9 - ENCOUNTER FOR PROPHYLACTIC MEASURES, UNSPECIFIED (4) DVT prophylaxis Assessment/Plan: scds/teds Code(s): Z29.9 - ENCOUNTER FOR PROPHYLACTIC MEASURES, UNSPECIFIED Visit type - Emergency Visit Emergency Visit: Yes ED Registration Date: 02/25/19 Care time: The patient presented to the Emergency Department on the above date and was hospitalized for further evaluation of their emergent condition. - New Patient This patient is new to me today: Yes Date on this admission: 02/26/19 - Critical Care Critical Care patient: No - Discharge Referral Referred to [facility] Med P.C.: No
[2019-02-26] MEDS ORDERED: KETOROLAC TROMETHAMINE 15 MG/ML VIAL IVPUSH PRN ×2 (13:19→13:21)
[2019-02-26] MEDS ORDERED: MORPHINE SULFATE 2 MG/ML VIAL IM PRN (13:21)
[2019-02-26] MEDS ORDERED: ACETAMINOPHEN 1000 MG/100 ML VIAL (NON FORMULARY) IVPB PRN (13:22)
[2019-02-26] MEDS: PANTOPRAZOLE SODIUM 40 MG VIAL IVPUSH SCH (13:54)
--- NOTE | 2019-02-26 13:54 | CONS ---
DATE OF CONSULTATION: 02/26/2019 BRIEF HISTORY: This is a 63-year-old female who on had fried chicken. She immediately developed nausea, vomiting, diarrhea with fever at home. Because of this, she went to an outpatient center, where she had a CAT scan of her abdomen and pelvis, which reportedly was unremarkable except for some mild thickening of the gallbladder. She was sent home and began to feel somewhat better. She then got a call because of the abnormality on the CAT scan and she was sent in to the [facility] emergency room. There, she had an ultrasound of her gallbladder, which showed that the gallbladder was thickened at 7 mm, there was a small amount of pericholecystic fluid, and there were gallstones. She was then admitted for acute cholecystitis. By then, her nausea, vomiting and diarrhea had stopped; however, she still had fever as late as last night at 101.2. She was admitted to the hospital on Rocephin and Flagyl. Her only complaint has been right lower quadrant pain. She states she never had right upper quadrant pain. She is asking for food. Her past medical history is negative. Past surgical history is nil. Social history is negative for alcohol, negative for tobacco. She has no known drug allergies. She takes no medications. REVIEW OF SYSTEMS: General: Denies fatigue or malaise. Cardiac: Denies chest pain or palpitations. Respiratory: No shortness of breath or wheeze. Gastrointestinal: As in HPI. Genitourinary: Denies dysuria. Musculoskeletal: Denies joint pain, joint swelling. Psychiatric: Denies anxiety, depression, or hearing voices. PHYSICAL EXAMINATION: General: This is a well-developed, well-nourished 63-year-old female in no distress. Vital Signs: She is currently afebrile with a T-max of 101.2. HEENT: Her head is normocephalic. Sclerae are anicteric. Neck: Supple. Chest: Clear. Abdomen: Soft. She is not distended. She has no surgical scars. She has no right upper quadrant tenderness on deep palpation. She does have localized right lower quadrant tenderness at McBurney's point. She does not have guarding. She has mild rebound. Extremities: Her extremities have trace edema. On review of her laboratory, white blood cell count is 12.7 with a shift. It was 12.7 yesterday as well. Her chemistries have remained unremarkable and her urinalysis shows mild leukocyte esterase with a few white blood cells. ASSESSMENT: A 63-year-old female who has nausea, vomiting, diarrhea, and right lower quadrant pain after eating fried chicken. She has an abnormal gallbladder seen on CAT scan and ultrasound but she has no physical exam findings which correlate with acute cholecystitis. Furthermore, the diarrhea is also not consistent with acute cholecystitis. I suspect that this is most likely some form of enteritis and she just happens to have chronic cholecystitis. However, I am concerned that she does have right lower quadrant tenderness in the [facility] [place] point. She did have a CAT scan done; however, that is unavailable to me, and as an outpatient study, I suspect that it would be safest to repeat the CAT scan. The patient is 63 years old and her radiation exposure is unlikely to result in future morbidity. Will repeat the CAT scan with oral and IV contrast to better evaluate the appendix. If the CAT scan is essentially negative, would recommend a HIDA scan to see if this truly is an obstructed cystic duct. Will make further recommendations based on this study; however, at this point, I am not convinced that this is acute cholecystitis. Also would change antibiotic to Zosyn, as she was having fever on Rocephin and Flagyl. Zosyn has better coverage than Rocephin and has better penetration in the biliary system. DO ALBERT RODRIGES/[id number]
[2019-02-26 16:12] LABS: INR 1.41 (0.83-1.09); PROTHROMBIN TIME (PATIENT) 16.7 SEC (9.7-13.0)
[2019-02-26] MEDS: PIPERACILLIN/TAZOB 3.375 GM 3.375 GM in DEXTROSE 5%-WATER - 50 ML IVPB SCH (17:29)
[2019-02-27] MEDS ORDERED: DEXTROSE 5%-WATER - 50 ML IVPB ONE ×2 (00:43→09:48)
[2019-02-27] MEDS ORDERED: PIPERACILLIN/TAZOBACTAM 3.375 GM VIAL IVPB ONE ×2 (00:43→09:48)
[2019-02-27] MEDS: PIPERACILLIN/TAZOB 3.375 GM 3.375 GM in DEXTROSE 5%-WATER - 50 ML IVPB SCH ×3 (01:02→17:26)
[2019-02-27] MEDS: DEXTROSE 5%-0.45% SALINE 1,000 ML IV SCH ×2 (04:00→22:01)
--- NOTE | 2019-02-27 08:05 | PN ---
Progress Note (short form) - Note Progress Note: PT without any diarrhea overnight. Some nausea with emesis. Vital Signs Period Temp Pulse Resp BP Sys/Benavidez Pulse Ox Last 24 Hr 98.8 F-99.8 F 83-84 16-20 109-150/50-84 96-96 GEN: A&0x3, NAD ABD: soft, non-distended, RUQ tenderness to palpation. No rebound or guarding. CBC, BMP 02/26/19 06:40 02/26/19 06:40 CT scan with oral/iv contrast: No evidnece of appendicitis, appendix filled with contrast A/p: 63 yo female with RUQ pain, r/o acute cholecystitis Spoke with the medical service, HIDA scan ordered as per Dr. Richards recommendations NPO/IV hydration Pt receiving IV Zosyn If HIDA scan is positive, then the patient will be scheduled for a lap colt on 02/28. The above plan was D/w Dr. Miles
[2019-02-27 08:16] LABS: BASO % 0.4 % (0-2.0); EOS % 1.6 % (0-4.5); HEMATOCRIT 31.8 % (32.4-45.2); HEMOGLOBIN 10.7 GM/dL (10.7-15.3); LYMPH % 16.7 % (8-40); MCH 30.4 pg (25.7-33.7); MCHC 33.7 g/dl (32.0-36.0); MEAN CELL VOLUME 90.2 fl (80-96); MEAN PLT VOLUME 9.2 fl (7.5-11.1); NEUT % 72.3 % (42.8-82.8); PLATELET COUNT 170 K/MM3 (134-434); RBC 3.52 M/mm3 (3.60-5.2); RDW 13.2 % (11.6-15.6)
[2019-02-27 08:51] LABS: INR 1.33 (0.83-1.09); PROTHROMBIN TIME (PATIENT) 15.7 SEC (9.7-13.0)
[2019-02-27 08:55] LABS: ALBUMIN 2.9 g/dl (3.4-5.0); BILIRUBIN,TOTAL 0.9 mg/dL (0.2-1); BLOOD UREA NITROGEN 9.8 mg/dL (7-18); CALCIUM 8.4 mg/dL (8.5-10.1); CREATININE 0.7 mg/dL (0.55-1.3); MAGNESIUM 2.3 mg/dL (1.8-2.4); POTASSIUM 3.8 mmol/L (3.5-5.1); TOT PROT 6.3 g/dl (6.4-8.2)
--- NOTE | 2019-02-27 13:41 | PN ---
Progress Note, Physician History of Present Illness: stable abd pain better had the scan - Current Medication List Current Medications: Active Medications Acetaminophen (Ofirmev Injection -) 1,000 mg IVPB Q6H PRN PRN Reason: pain and fever Dextrose/Sodium Chloride (D5-1/2ns -) 1,000 mls @ 100 mls/hr IV ASDIR TYREE Last Admin: 02/27/19 04:00 Dose: 100 mls/hr Piperacillin Sod/Tazobactam (Sod 3.375 gm/ Dextrose) 50 mls @ 100 mls/hr IVPB Q8H-IV TYREE; Protocol Last Admin: 02/27/19 01:02 Dose: 100 mls/hr Ketorolac Tromethamine (Toradol Injection -) 15 mg IVPUSH Q6H PRN PRN Reason: PAIN LEVEL 4 - 6 Stop: 03/03/19 13:18 Last Admin: 02/26/19 16:32 Dose: 15 mg Pantoprazole Sodium (Protonix Iv) 40 mg IVPUSH DAILY [facility] Last Admin: 02/26/19 13:54 Dose: 40 mg - Objective Vital Signs: Vital Signs Temperature 98.8 F 02/27/19 04:20 Pulse Rate 84 02/27/19 04:20 Respiratory Rate 16 02/27/19 09:00 Blood Pressure 150/84 02/27/19 04:20 O2 Sat by Pulse Oximetry (%) 96 02/27/19 09:00 Constitutional: Yes: No Distress, Calm Cardiovascular: Yes: S1, S2 Respiratory: Yes: Regular, CTA Bilaterally Gastrointestinal: Yes: Normal Bowel Sounds, Soft Musculoskeletal: Yes: WNL Extremities: Yes: WNL Neurological: Yes: Alert, Oriented Psychiatric: Yes: Alert, Oriented Labs: CBC, BMP 02/27/19 07:30 02/27/19 07:42 INR, PTT INR 1.33 (0.83-1.09) H 02/27/19 07:42 Assessment/Plan Problem List - Problems (1) Acute cholecystitis Code(s): K81.0 - ACUTE CHOLECYSTITIS (2) Abdominal pain Code(s): R10.9 - UNSPECIFIED ABDOMINAL PAIN (3) Prophylactic measure Code(s): Z29.9 - ENCOUNTER FOR PROPHYLACTIC MEASURES, UNSPECIFIED 4 obesity plan continue abx await for the reports rest as per the team and surgery
--- NOTE | 2019-02-27 16:36 | PN ---
Physical Exam: SUBJECTIVE: Patient seen and examined at the bedside. still having rlq pain but improving. OBJECTIVE: Patient is a 63 year old female who presents to the ED on 02/25/19 with acute RLQ pain. In the ER she had abdominal ultrasound done which shows acute cholecystitis and fluid around the gallbladder. abdomen/ct 02/26/19 shows suspicion for acute colt, no evidence of acute appendicitis. Hida scan suggestive of cystic duct obstruction and acute cholecystitis. Vital Signs Period Temp Pulse Resp BP Sys/Benavidez Pulse Ox Last 24 Hr 98.7 F-99.8 F 79-84 16-20 109-150/50-84 96-96 GENERAL: The patient is awake, alert, and fully oriented, in no acute distress. report discomfort and pain or rlq 6/10. HEAD: Normal with no signs of trauma. EYES: PERRL, extraocular movements intact, sclera anicteric, conjunctiva clear. No ptosis. ENT: Ears normal, nares patent, oropharynx clear without exudates, moist mucous membranes. NECK: Trachea midline, full range of motion, supple. LUNGS: Breath sounds equal, clear to auscultation bilaterally, no wheezes HEART: Regular rate and rhythm ABDOMEN: soft, non tender, non distended, RLQ with pain on light palpation of abdomen, denies nausea or vomiting EXTREMITIES: 2+ pulses, warm, well-perfused, no edema. NEUROLOGICAL: Normal speech, gait not observed. PSYCH: Normal mood, normal affect. Laboratory Results - last 24 hr 02/27/19 02/27/19 02/27/19 07:30 07:42 07:42 WBC 7.0 RBC 3.52 L Hgb 10.7 Hct 31.8 L MCV 90.2 MCH 30.4 MCHC 33.7 RDW 13.2 Plt Count 170 MPV 9.2 Absolute Neuts (auto) 5.1 Neutrophils % 72.3 Lymphocytes % 16.7 D Monocytes % 9.0 Eosinophils % 1.6 D Basophils % 0.4 Nucleated RBC % 0 PT with INR INR Sodium 138 Potassium 3.8 Chloride 106 Carbon Dioxide 28 Anion Gap 5 L BUN 9.8 Creatinine 0.7 Est GFR (CKD-EPI)AfAm 106.87 Est GFR (CKD-EPI)NonAf 92.21 Random Glucose 97 Calcium 8.4 L Magnesium 2.3 Total Bilirubin 0.9 AST 9 L ALT 15 Alkaline Phosphatase 64 Total Protein 6.3 L Albumin 2.9 L Blood Type A POSITIVE Antibody Screen Negative 02/27/19 02/27/19 07:42 11:50 WBC RBC Hgb Hct MCV MCH MCHC RDW Plt Count MPV Absolute Neuts (auto) Neutrophils % Lymphocytes % Monocytes % Eosinophils % Basophils % Nucleated RBC % PT with INR 15.70 H INR 1.33 H Sodium Potassium Chloride Carbon Dioxide Anion Gap BUN Creatinine Est GFR (CKD-EPI)AfAm Est GFR (CKD-EPI)NonAf Random Glucose Calcium Magnesium Total Bilirubin AST ALT Alkaline Phosphatase Total Protein Albumin Blood Type A POSITIVE Antibody Screen Active Medications Generic Name Dose Route Start Last Admin Trade Name Freq PRN Reason Stop Dose Admin Acetaminophen 1,000 mg 02/26/19 13:22 Ofirmev Injection - IVPB Q6H PRN pain and fever Dextrose/Sodium Chloride 1,000 mls @ 100 mls/hr 02/25/19 13:15 02/27/19 04:00 D5-1/2ns - IV 100 mls/hr ASDIR TYREE Administration Piperacillin Sod/Tazobactam 50 mls @ 100 mls/hr 02/26/19 18:00 02/27/19 01:02 Sod 3.375 gm/ Dextrose IVPB 100 mls/hr Q8H-IV TYREE Administration Protocol Ketorolac Tromethamine 15 mg 02/26/19 13:21 02/26/19 16:32 Toradol Injection - IVPUSH 03/03/19 13:18 15 mg Q6H PRN Administration PAIN LEVEL 4 - 6 Pantoprazole Sodium 40 mg 02/26/19 13:30 02/26/19 13:54 Protonix Iv IVPUSH 40 mg DAILY TYREE Administration ASSESSMENT/PLAN: Problem List - Problems (1) Acute cholecystitis Assessment/Plan: RLQ pain and tenderness on zosyn, IVF and pain management surgery to evaluate for possible surgical interventions. maintain NPO pre op labs ordered pain management, incentive spirometer, hydration and antibiotics on board. Code(s): K81.0 - ACUTE CHOLECYSTITIS (2) Abdominal pain Assessment/Plan: abdominal ultrasound done which shows acute cholecystitis and fluid around the gallbladder. abdomen/ct 02/26/19 shows suspicion for acute colt, no evidence of acute appendicitis. on zosyn, surgery to see for surgical intervention maintain on emperic zosyn hida scan as noted above Code(s): R10.9 - UNSPECIFIED ABDOMINAL PAIN (3) Prophylactic measure Assessment/Plan: d5 1/2 ns monitor electrolytes npo for surgery full code Code(s): Z29.9 - ENCOUNTER FOR PROPHYLACTIC MEASURES, UNSPECIFIED (4) DVT prophylaxis Assessment/Plan: scds/teds Code(s): Z29.9 - ENCOUNTER FOR PROPHYLACTIC MEASURES, UNSPECIFIED Visit type - Emergency Visit Emergency Visit: Yes ED Registration Date: 02/25/19 Care time: The patient presented to the Emergency Department on the above date and was hospitalized for further evaluation of their emergent condition. - New Patient This patient is new to me today: No - Critical Care Critical Care patient: No - Discharge Referral Referred to [facility] Med P.C.: No
[2019-02-27] MEDS: PANTOPRAZOLE SODIUM 40 MG VIAL IVPUSH SCH (17:26)
--- NOTE | 2019-02-27 18:04 | PN ---
Progress Note (short form) - Note Progress Note: surgery hida suboptimal study but suggestive of cholecystitis. still no ruq tenderness. wbc now normal. no fever. plan- pt wants to proceed with surgery. abnormal gb on ct, u/s, and hida. will plan for cholecystectomy this admission.
[2019-02-28] MEDS ORDERED: DEXTROSE 5%-WATER - 50 ML IVPB ONE ×3 (01:52→17:46)
[2019-02-28] MEDS ORDERED: PIPERACILLIN/TAZOBACTAM 3.375 GM VIAL IVPB ONE ×3 (01:52→17:46)
[2019-02-28] MEDS: PIPERACILLIN/TAZOB 3.375 GM 3.375 GM in DEXTROSE 5%-WATER - 50 ML IVPB SCH ×3 (01:57→18:08)
[2019-02-28 09:31] LABS: BASO % 0.9 % (0-2.0); EOS % 3.1 % (0-4.5); HEMATOCRIT 32.2 % (32.4-45.2); LYMPH % 26.4 % (8-40); MCH 30.2 pg (25.7-33.7); MCHC 34.2 g/dl (32.0-36.0); MEAN CELL VOLUME 88.3 fl (80-96); MEAN PLT VOLUME 9.1 fl (7.5-11.1); MONO % 12.5 % (3.8-10.2); NEUT % 57.1 % (42.8-82.8); PLATELET COUNT 197 K/MM3 (134-434); RBC 3.64 M/mm3 (3.60-5.2); WHITE BLOOD COUNT 4.5 K/mm3 (4.0-10.0)
[2019-02-28] MEDS: PANTOPRAZOLE SODIUM 40 MG VIAL IVPUSH SCH (09:54)
[2019-02-28 10:13] LABS: ALBUMIN 3.1 g/dl (3.4-5.0); BLOOD UREA NITROGEN 11.4 mg/dL (7-18); CALCIUM 8.8 mg/dL (8.5-10.1); CREATININE 0.6 mg/dL (0.55-1.3); MAGNESIUM 2.5 mg/dL (1.8-2.4); POTASSIUM 3.5 mmol/L (3.5-5.1); TOT PROT 6.6 g/dl (6.4-8.2)
--- NOTE | 2019-02-28 11:07 | PN ---
Physical Exam: SUBJECTIVE: Patient seen and examined at the bedside. going for a lap colt today. awake, alert and denies any pain. OBJECTIVE: Patient is a 63 year old female who presents to the ED on 02/25/19 with acute RLQ pain. In the ER she had abdominal ultrasound done which shows acute cholecystitis and fluid around the gallbladder. abdomen/ct 02/26/19 shows suspicion for acute colt, no evidence of acute appendicitis. Hida scan suggestive of cystic duct obstruction and acute cholecystitis. Vital Signs Period Temp Pulse Resp BP Sys/Benavidez Pulse Ox Last 24 Hr 97.9 F-98.7 F 70-79 - 118-142/63-72 96 GENERAL: The patient is awake, alert, and fully oriented, in no acute distress. HEAD: Normal with no signs of trauma. EYES: PERRL, extraocular movements intact, sclera anicteric, conjunctiva clear. No ptosis. ENT: Ears normal, nares patent, oropharynx clear without exudates, moist mucous membranes. NECK: Trachea midline, full range of motion, supple. LUNGS: Breath sounds equal, clear to auscultation bilaterally, no wheezes HEART: Regular rate and rhythm ABDOMEN: soft, non tender, non distended, RLQ with pain on light palpation of abdomen, denies nausea or vomiting EXTREMITIES: 2+ pulses, warm, well-perfused, no edema. NEUROLOGICAL: Normal speech, gait not observed. PSYCH: Normal mood, normal affect. Laboratory Results - last 24 hr 02/27/19 02/27/19 02/27/19 07:42 07:42 11:50 WBC RBC Hgb Hct MCV MCH MCHC RDW Plt Count MPV Absolute Neuts (auto) Neutrophils % Lymphocytes % Monocytes % Eosinophils % Basophils % Nucleated RBC % PT with INR 15.70 H INR 1.33 H Sodium Potassium Chloride Carbon Dioxide Anion Gap BUN Creatinine Est GFR (CKD-EPI)AfAm Est GFR (CKD-EPI)NonAf Random Glucose Calcium Magnesium Total Bilirubin AST ALT Alkaline Phosphatase Total Protein Albumin Blood Type A POSITIVE A POSITIVE Antibody Screen Negative 02/28/19 02/28/19 08:28 08:28 WBC 4.5 RBC 3.64 Hgb 11.0 Hct 32.2 L MCV 88.3 MCH 30.2 MCHC 34.2 RDW 13.0 Plt Count 197 MPV 9.1 Absolute Neuts (auto) 2.6 Neutrophils % 57.1 D Lymphocytes % 26.4 D Monocytes % 12.5 H Eosinophils % 3.1 D Basophils % 0.9 Nucleated RBC % 0 PT with INR INR Sodium 143 Potassium 3.5 Chloride 108 H Carbon Dioxide 27 Anion Gap 7 L BUN 11.4 Creatinine 0.6 Est GFR (CKD-EPI)AfAm 112.43 Est GFR (CKD-EPI)NonAf 97.01 Random Glucose 95 Calcium 8.8 Magnesium 2.5 H Total Bilirubin 1.0 AST 12 L ALT 18 Alkaline Phosphatase 66 Total Protein 6.6 Albumin 3.1 L Blood Type Antibody Screen Active Medications Generic Name Dose Route Start Last Admin Trade Name Freq PRN Reason Stop Dose Admin Acetaminophen 1,000 mg 02/26/19 13:22 Ofirmev Injection - IVPB Q6H PRN pain and fever Dextrose/Sodium Chloride 1,000 mls @ 100 mls/hr 02/25/19 13:15 02/27/19 22:01 D5-1/2ns - IV 100 mls/hr ASDIR TYREE Administration Piperacillin Sod/Tazobactam 50 mls @ 100 mls/hr 02/26/19 18:00 02/28/19 09:20 Sod 3.375 gm/ Dextrose IVPB 100 mls/hr Q8H-IV TYREE Administration Protocol Ketorolac Tromethamine 15 mg 02/26/19 13:21 02/26/19 16:32 Toradol Injection - IVPUSH 03/03/19 13:18 15 mg Q6H PRN Administration PAIN LEVEL 4 - 6 Pantoprazole Sodium 40 mg 02/26/19 13:30 02/28/19 09:54 Protonix Iv IVPUSH 40 mg DAILY TYREE Administration ASSESSMENT/PLAN: Problem List - Problems (1) Acute cholecystitis Assessment/Plan: RLQ pain and tenderness on zosyn, IVF and pain management for lap colt today maintain NPO pain management, incentive spirometer, hydration and antibiotics on board. Code(s): K81.0 - ACUTE CHOLECYSTITIS (2) Abdominal pain Assessment/Plan: abdominal ultrasound done which shows acute cholecystitis and fluid around the gallbladder. abdomen/ct 02/26/19 shows suspicion for acute colt, no evidence of acute appendicitis. on zosyn maintain on emperic zosyn hida scan as noted above Code(s): R10.9 - UNSPECIFIED ABDOMINAL PAIN (3) Prophylactic measure Assessment/Plan: d5 1/2 ns monitor electrolytes npo for surgery full code Code(s): Z29.9 - ENCOUNTER FOR PROPHYLACTIC MEASURES, UNSPECIFIED (4) DVT prophylaxis Assessment/Plan: scds/teds Code(s): Z29.9 - ENCOUNTER FOR PROPHYLACTIC MEASURES, UNSPECIFIED Visit type - Emergency Visit Emergency Visit: Yes ED Registration Date: 02/25/19 Care time: The patient presented to the Emergency Department on the above date and was hospitalized for further evaluation of their emergent condition. - New Patient This patient is new to me today: No - Critical Care Critical Care patient: No - Discharge Referral Referred to [facility] Med P.C.: No
[2019-02-28] MEDS ORDERED: ROCURONIUM BROMIDE 50 MG/5 ML SYRINGE ONE (11:12)
[2019-02-28] MEDS ORDERED: MIDAZOLAM HCL 2 MG/2 ML SINGLE DOSE VIAL ONE (11:12)
[2019-02-28] MEDS ORDERED: PROPOFOL 20 ML ONE (11:12)
[2019-02-28] MEDS ORDERED: fentaNYL CITRATE 250 MCG/5 ML VIAL ONE (11:12)
[2019-02-28] MEDS ORDERED: DEXAMETHASONE SOD PHOSPHATE 4 MG/1 ML VIAL ONE (11:13)
[2019-02-28] MEDS ORDERED: LIDOCAINE HCL/PF 2% SDV 5ML VIAL ONE (11:13)
--- NOTE | 2019-02-28 12:25 | PN ---
Progress Note, Physician History of Present Illness: stable findings noted - Current Medication List Current Medications: Active Medications Acetaminophen (Ofirmev Injection -) 1,000 mg IVPB Q6H PRN PRN Reason: pain and fever Dextrose/Sodium Chloride (D5-1/2ns -) 1,000 mls @ 100 mls/hr IV ASDIR TYREE Last Admin: 02/27/19 22:01 Dose: 100 mls/hr Piperacillin Sod/Tazobactam (Sod 3.375 gm/ Dextrose) 50 mls @ 100 mls/hr IVPB Q8H-IV TYREE; Protocol Last Admin: 02/28/19 09:20 Dose: 100 mls/hr Ketorolac Tromethamine (Toradol Injection -) 15 mg IVPUSH Q6H PRN PRN Reason: PAIN LEVEL 4 - 6 Stop: 03/03/19 13:18 Last Admin: 02/26/19 16:32 Dose: 15 mg Pantoprazole Sodium (Protonix Iv) 40 mg IVPUSH DAILY [facility] Last Admin: 02/28/19 09:54 Dose: 40 mg - Objective Vital Signs: Vital Signs Temperature 97.9 F 02/28/19 06:49 Pulse Rate 70 02/28/19 06:49 Respiratory Rate 19 02/28/19 09:00 Blood Pressure 118/68 02/28/19 06:49 O2 Sat by Pulse Oximetry (%) 96 02/28/19 09:00 Constitutional: Yes: No Distress, Calm Cardiovascular: Yes: Regular Rate and Rhythm Respiratory: Yes: Regular, CTA Bilaterally Gastrointestinal: Yes: Normal Bowel Sounds, Soft Musculoskeletal: Yes: WNL Extremities: Yes: WNL Labs: CBC, BMP 02/28/19 08:28 02/28/19 08:28 INR, PTT INR 1.33 (0.83-1.09) H 02/27/19 07:42 Assessment/Plan Problem List - Problems (1) Acute cholecystitis Code(s): K81.0 - ACUTE CHOLECYSTITIS (2) Abdominal pain Code(s): R10.9 - UNSPECIFIED ABDOMINAL PAIN (3) Prophylactic measure Code(s): Z29.9 - ENCOUNTER FOR PROPHYLACTIC MEASURES, UNSPECIFIED 4 obesity plan abx patient going for surgery rest as per the team
[2019-02-28] MEDS ORDERED: oxyCODONE HCL 5 MG TABLET PO PRN (12:31)
[2019-02-28] MEDS ORDERED: ONDANSETRON 4 MG/2 ML VIAL IVPUSH PRN (12:31)
--- NOTE | 2019-02-28 12:35 | OP ---
Operative Note - Note: Operative Date: 02/28/19 Pre-Operative Diagnosis: acute gangrenous cholecystitis, cholelithiasis Operation: laparoscopic cholecystectomy, lavage Findings: thickened inflamed gb with hydrops and necrotic posterior wall, Post-Operative Diagnosis: Same as Pre-op Surgeon: Janusz Miles Head Silverman: Dominga Rebolledo Anesthesia: General Specimens Removed: gb Estimated Blood Loss (mls): 75 Operative Report Dictated: Yes
[2019-02-28] MEDS ORDERED: GLYCOPYRROLATE 0.2 MG/1 ML VIAL ONE (13:39)
[2019-02-28] MEDS ORDERED: NEOSTIGMINE METHYLSULFATE 0.5 MG/ML - 10 ML MDV ONE (13:39)
[2019-02-28] MEDS ORDERED: ACETAMINOPHEN 1000 MG/100 ML VIAL (NON FORMULARY) IVPB PRN (14:11)
[2019-02-28] MEDS ORDERED: DEXTROSE 5%-0.45% SALINE 1,000 ML IV SCH (14:11)
[2019-02-28] MEDS ORDERED: LACTATED RINGERS SOLUTION 1,000 ML IV SCH (14:15)
--- NOTE | 2019-02-28 14:19 | SURG ---
Surgery Attorney Law Clerk Note Attorney Law Clerk: Dominga Rebolledo PA-C Date of Service: 02/28/19 Diagnosis: acute gangrenous cholecystitis, cholelithiasis Procedure: laparoscopic cholecystectomy, lavage I was present for the entirety of the operative procedure. For further detail, please refer to operative report. Visit type - Case Type Case Type: ED Admission - Emergency Emergency Visit: Yes ED Registration Date: 02/25/19 Care time: The patient presented to the Emergency Department on the above date and was hospitalized for further evaluation of their emergent condition. - New patient This patient is new to me today: Yes Date on this admission: 02/28/19
[2019-02-28] MEDS ORDERED: ACETAMINOPHEN INJECTION 100 ML IVPB ONE (14:27)
--- NOTE | 2019-02-28 16:14 | OP ---
DATE OF OPERATION: 02/28/2019 PREOPERATIVE DIAGNOSIS: Acute cholecystitis, cholelithiasis. POSTOPERATIVE DIAGNOSIS: Acute cholecystitis, cholelithiasis. PROCEDURE: Laparoscopic cholecystectomy with lavage. SURGEON: Janusz Miles DO. CLAY DRY PRESS MIXER OPERATOR: MIGUELITO Griffiths. ANESTHESIOLOGIST: Adarsh Luong MD. INTRAOPERATIVE FINDINGS: A gangrenous hemorrhagic acute cholecystitis. BLOOD LOSS: 75 mL. DRAINS: None. DISPOSITION: To recovery in stable condition. BRIEF HISTORY: This is a 63-year-old female who presented to [facility] with signs and symptoms of acute cholecystitis. She had ultrasound, CAT scan, and HIDA evidence to support this diagnosis. However, she was mostly having right lower quadrant pain instead of right upper quadrant pain, which clouded the diagnosis. At this point, she presented for cholecystectomy. DESCRIPTION OF PROCEDURE: The patient was placed in the supine position. After general anesthesia was administered, the abdomen was prepped and draped in sterile fashion. The patient is already on Zosyn antibiotic. A transverse incision is made infraumbilically with scalpel blade going through skin and subcutaneous tissue. The fascia was lifted with a Junaid clamp, and Veress needle was inserted while pneumoperitoneum was created. An 11-mm trocar was placed followed by insertion of a 10-mm, 0-degree laparoscope. An additional 11-mm trocar was placed subxiphoid, and two 5-mm trocars were placed in the right upper quadrant. Attention was then turned toward the gallbladder. It was plastered with omentum. This was teased off, showing an acute on chronic inflamed gallbladder. Veress needle decompression was done in order to enable grasping such a large gallbladder. There was hydrops noted. The fundus was cephalad. The infundibulum retracted laterally. A very thickened perineal peel was taken down, exposing a generous cystic duct, a small cystic artery. The cystic duct was divided with a multifire KENDRA vascular stapler in 1 firing. The cystic artery was clipped with small branches and divided. The gallbladder was then liberated from the liver bed using electrocautery. A portion of the posterior wall was necrotic. This was taken sharply. The gallbladder was placed in a retrieval bag, removed through the infraumbilical trocar site after a mild fascial dilatation and sent to pathology marked as a specimen. A limited lavage was done until return was clear. Hemostasis was maintained utilizing electrocautery and FloSeal. At this point, trocars removed under direct visualization after pneumoperitoneum was released, and no bleeding was noted. The fascia, the infraumbilical, and subxiphoid trocar sites were closed with multiple interrupted 0 Vicryl sutures. The 4 skin incisions were closed with Biosyn and Dermabond dressing was placed. Overall, the patient tolerated the procedure well with no complications. DO ALBERT RODRIGES/[id number] MTDD
[2019-02-28] MEDS: morphine SULFATE 4 MG/ML VIAL IVPB PRN (18:07)
[2019-03-01] MEDS: morphine SULFATE 4 MG/ML VIAL IVPB PRN ×2 (00:28→09:17)
[2019-03-01] MEDS ORDERED: DEXTROSE 5%-WATER - 50 ML IVPB ONE ×2 (02:38→09:58)
[2019-03-01] MEDS ORDERED: PIPERACILLIN/TAZOBACTAM 3.375 GM VIAL IVPB ONE ×2 (02:38→09:58)
[2019-03-01] MEDS: PIPERACILLIN/TAZOB 3.375 GM 3.375 GM in DEXTROSE 5%-WATER - 50 ML IVPB SCH ×2 (02:47→10:03)
[2019-03-01 05:09] VITALS: TEMP 98.6
[2019-03-01 05:13] VITALS: BP 153/59; PULSE 87
[2019-03-01 09:33] LABS: BASO % 0.6 % (0-2.0); EOS % 0.2 % (0-4.5); HEMATOCRIT 31.4 % (32.4-45.2); HEMOGLOBIN 10.5 GM/dL (10.7-15.3); LYMPH % 9.8 % (8-40); MCHC 33.5 g/dl (32.0-36.0); MEAN CELL VOLUME 89.4 fl (80-96); MEAN PLT VOLUME 8.8 fl (7.5-11.1); MONO % 12.2 % (3.8-10.2); NEUT % 77.2 % (42.8-82.8); PLATELET COUNT 222 K/MM3 (134-434); RBC 3.51 M/mm3 (3.60-5.2); RDW 12.9 % (11.6-15.6); WHITE BLOOD COUNT 8.3 K/mm3 (4.0-10.0)
--- NOTE | 2019-03-01 09:59 | PN ---
Progress Note, Physician History of Present Illness: post doing well tolerating liquids - Current Medication List Current Medications: Active Medications Acetaminophen (Ofirmev Injection -) 1,000 mg IVPB Q6H PRN PRN Reason: pain and fever Last Admin: 02/28/19 14:30 Dose: 1,000 mg Enoxaparin Sodium (Lovenox -) 40 mg SQ DAILY [facility] Dextrose/Sodium Chloride (D5-1/2ns -) 1,000 mls @ 100 mls/hr IV ASDIR TYREE Last Admin: 02/28/19 17:00 Dose: 0 mls Piperacillin Sod/Tazobactam (Sod 3.375 gm/ Dextrose) 50 mls @ 100 mls/hr IVPB Q8H-IV TYREE; Protocol Last Admin: 03/01/19 02:47 Dose: 100 mls/hr Morphine Sulfate (Morphine Sulfate) 8 mg IVPB Q3H PRN PRN Reason: PAIN LEVEL 7 - 10 Last Admin: 03/01/19 09:17 Dose: 8 mg Ondansetron HCl (Zofran Injection) 4 mg IVPUSH Q6H PRN PRN Reason: NAUSEA Oxycodone HCl (Roxicodone -) 7.5 mg PO Q4H PRN PRN Reason: PAIN LEVEL 4 - 6 Pantoprazole Sodium (Protonix Iv) 40 mg IVPUSH DAILY [facility] - Objective Vital Signs: Vital Signs Temperature 98.6 F 03/01/19 05:12 Pulse Rate 87 03/01/19 05:12 Respiratory Rate 03/01/19 05:12 Blood Pressure 153/59 L 03/01/19 05:12 O2 Sat by Pulse Oximetry (%) 98 02/28/19 21:00 Constitutional: Yes: Calm, Mild Distress, Obese Cardiovascular: Yes: S1, S2 Respiratory: Yes: Regular, CTA Bilaterally Gastrointestinal: Yes: Soft, Hypoactive Bowel Sounds Musculoskeletal: Yes: WNL Extremities: Yes: WNL Wound/Incision: Yes: Dressing Dry and Intact Neurological: Yes: Alert, Oriented Psychiatric: Yes: Alert, Oriented Labs: CBC, BMP 03/01/19 09:04 INR, PTT INR 1.33 (0.83-1.09) H 02/27/19 07:42 Assessment/Plan Problem List - Problems (1) Acute cholecystitis Code(s): K81.0 - ACUTE CHOLECYSTITIS (2) Abdominal pain Code(s): R10.9 - UNSPECIFIED ABDOMINAL PAIN (3) Prophylactic measure Code(s): Z29.9 - ENCOUNTER FOR PROPHYLACTIC MEASURES, UNSPECIFIED 4 obesity plan abx can change to augmentin for couple of days
[2019-03-01] MEDS ORDERED: PANTOPRAZOLE SODIUM 40 MG VIAL IVPUSH SCH (10:00)
[2019-03-01] MEDS ORDERED: ENOXAPARIN NA (PORCINE) 40 MG/0.4 ML DISP.SYRIN SQ SCH (10:00)
[2019-03-01 10:08] LABS: ALBUMIN 2.9 g/dl (3.4-5.0); BLOOD UREA NITROGEN 10.5 mg/dL (7-18); CALCIUM 8.3 mg/dL (8.5-10.1); CREATININE 0.7 mg/dL (0.55-1.3); POTASSIUM 3.5 mmol/L (3.5-5.1); TOT PROT 6.1 g/dl (6.4-8.2)
--- NOTE | 2019-03-01 10:42 | PN ---
Progress Note (short form) - Note Progress Note: surgery pt seen and examined. feels well. ambulating, voiding, tolerating diet. afebrile abd-soft,minimal tenderness, incisions clean Laboratory Tests 03/01/19 09:04 WBC 8.3 plan- surgically stable for d/c. rec 5 days augmentin. regular diet. ok to shower. no lifting. 2 weeks off work. f/u in 2 weeks. [phone]
--- NOTE | 2019-03-01 11:01 | DS ---
Physical Exam: SUBJECTIVE: Patient seen and examined at the bedside. awake, alert and in no acute distress. feels well. denies pain. eating and tolerating her breakfast. no nausea/ vomiting. OBJECTIVE: discharge home with surgery follow up outpatient. Patient is a 63 year old female who presents to the ED on 02/25/19 with acute RLQ pain. In the ER she had abdominal ultrasound done which shows acute cholecystitis and fluid around the gallbladder. abdomen/ct 02/26/19 shows suspicion for acute colt, no evidence of acute appendicitis. Hida scan suggestive of cystic duct obstruction and acute cholecystitis. Patient is s/p laparoscopic cholecystectomy on 02/28/2019 and has been treated with Zosyn antibiotics. She will be sent home on 5 more days of Augmentin for gangrenous cholecystitis. Vital Signs Period Temp Pulse Resp BP Sys/Benavidez Pulse Ox Last 24 Hr 98.2 F-98.6 F 63-89 14-20 133-158/59-90 95-100 PHYSICAL EXAM GENERAL: The patient is awake, alert, and fully oriented, in no acute distress. HEAD: Normal with no signs of trauma. EYES: PERRL, extraocular movements intact, sclera anicteric, conjunctiva clear. No ptosis. ENT: Ears normal, nares patent, oropharynx clear without exudates, moist mucous membranes. NECK: Trachea midline, full range of motion, supple. LUNGS: Breath sounds equal, clear to auscultation bilaterally, no wheezes HEART: Regular rate and rhythm ABDOMEN: soft, non tender, non distended, RLQ with pain on light palpation of abdomen, denies nausea or vomiting EXTREMITIES: 2+ pulses, warm, well-perfused, no edema. NEUROLOGICAL: Normal speech PSYCH: Normal mood, normal affect. LABS Laboratory Results - last 24 hr 03/01/19 03/01/19 06:00 09:04 WBC 8.3 RBC 3.51 L Hgb 10.5 L Hct 31.4 L MCV 89.4 MCH 30.0 MCHC 33.5 RDW 12.9 Plt Count 222 MPV 8.8 Absolute Neuts (auto) 6.4 Neutrophils % 77.2 D Lymphocytes % 9.8 D Monocytes % 12.2 H Eosinophils % 0.2 D Basophils % 0.6 Nucleated RBC % 0 Sodium 137 Potassium 3.5 Chloride 103 Carbon Dioxide 29 Anion Gap 5 L BUN 10.5 Creatinine 0.7 Est GFR (CKD-EPI)AfAm 106.87 Est GFR (CKD-EPI)NonAf 92.21 Random Glucose 141 H Calcium 8.3 L Total Bilirubin 1.0 AST 20 ALT 27 Alkaline Phosphatase 57 Total Protein 6.1 L Albumin 2.9 L HOSPITAL COURSE: Date of Admission:02/25/19 Date of Discharge: 03/01/19 Minutes to complete discharge: 45 Discharge Summary Problems reviewed: Yes Reason For Visit: CHOLECYSTITIS;HIGH BILIRUBIN;ABDOMINAL PAIN Current Active Problems Acute cholecystitis (Acute) DVT prophylaxis (Acute) Prophylactic measure (Acute) Condition: Good - Instructions Diet, Activity, Other Instructions: Discharge Instructions Dear HENRIQUE LONG, Post Operative Instructions Physical activity Resume your normal everyday activity as tolerated no heavy lifting or exercise until seen by your surgeon. You may walk unlimited amounts of and climb stairs. You may resume driving the car when you feel safe and comfortable behind the wheel and are no longer taking narcotics. Wound care If you have a bandage, leave it on, and keep dry for 48 hours. After that time discard the outer bandage. You may shower 2 days after surgery but do not submerge the incisions. Do not apply lotion or ointments to incisions. Diet There are no dietary restrictions. Eat healthy, high-fiber foods. Drink 6 to 8 glasses of liquid each day. This will assist in keeping your bowels are regular. Pain management You may take Tylenol or acetaminophen or Ibuprofen (for example, Motrin, Advil etc.) Any pain prescription medication ordered should be taken as prescribed for moderate to severe pain. Work: Do not return to work until you are seen by the surgeon and he clears you. Call Dr. Miles for any of the following: Severe pain not relieved by medication Fever of 101 or higher Excessive bleeding or drainage on dressing Inability to urinate If you experience any chest pain or shortness of breath please seek emergency treatment immediately. Call the office at [phone] for a post operative appointment in 7 - 10 days. Referrals: Janusz Miles MD [Staff Physician] - 2 Weeks Disposition: HOME - Home Medications Comprehensive Discharge Medication List: Ambulatory Orders Amoxicillin/Potassium Clav [Augmentin 875-125 Tablet] 1 each PO BID 5 Days #10 tablet 02/28/19 Amoxicillin/Potassium Clav [Augmentin 875-125 Tablet] 1 each PO BID #10 tablet 03/01/19 Problem List - Problems (1) Acute cholecystitis Assessment/Plan: s/p lap colt POD #1 treated with zosyn during hospital stay, will d/c on augmentin 875mg bid. toleraring diet, abdomen soft, non distended, no nausea or vomiting outpatient surgical follow up Code(s): K81.0 - ACUTE CHOLECYSTITIS (2) Abdominal pain Assessment/Plan: resolved, only reports soreness on surgical site. Code(s): R10.9 - UNSPECIFIED ABDOMINAL PAIN (3) Prophylactic measure Code(s): Z29.9 - ENCOUNTER FOR PROPHYLACTIC MEASURES, UNSPECIFIED (4) DVT prophylaxis Assessment/Plan: scds/teds Code(s): Z29.9 - ENCOUNTER FOR PROPHYLACTIC MEASURES, UNSPECIFIED This patient is new to me today: No Emergency Visit: Yes ED Registration Date: 02/25/19 Care time: The patient presented to the Emergency Department on the above date and was hospitalized for further evaluation of their emergent condition. Critical Care patient: No - Discharge Referral Referred to [facility] Med P.C.: No
--- NOTE | 2019-03-01 11:22 | PN ---
Progress Note (short form) - Note Progress Note: POD#1 Pt without nausea last pm, tolerated a diet. Passing flatus. Complaints of pain to her upper abd. Vital Signs Period Temp Pulse Resp BP Sys/Benavidez Pulse Ox Last 24 Hr 98.2 F-98.6 F 63-89 14-20 133-158/59-90 95-100 GEN: A&0x3, NAD CV; RRR Lungs: CTA b/l ABD: soft, non-distended, inc tenderness. Inc c/d/i with dermabond. LE: no calf tenderness or swelling noted b/l CBC, BMP 03/01/19 09:04 03/01/19 06:00 Laboratory Tests 02/25/19 02/26/19 03/01/19 10:00 06:40 06:00 Total Bilirubin 1.8 H 1.3 H 1.0 AST 10 L 20 ALT 17 27 Alkaline Phosphatase 64 57 A/P: 63 yo female s/p lap colt for acute cholecystitis/GS Continue low fat diet OOB and ambulate Discharge to home with Augmentin 875mg po bid Followup with Dr. Miles in 1 week D/w Dr. Miles
--- NOTE | 2019-03-02 09:56 | PATH ---
Surgical Pathology Report Patient Name: HENRIQUE LONG Med. Rec. #: [id number] /Age/Gender: 1955 (Age: 63) / F Account: [id number] Location: [address] [place] [address]/[facility] Taken: 02/28/2019 Received: 03/01/2019 Reported: 03/02/2019 Physicians: Nguyễn Bernal M.D. Specimen(s) Received GALLBLADDER Clinical History Cholecystitis, high bilirubin, abdominal pain Final Diagnosis GALLBLADDER, CHOLECYSTECTOMY: ACUTE, CHRONIC, AND NECROTIZING CHOLECYSTITIS WITH TRANSMURAL DEFECT SUGGESTIVE OF PERFORATION, AND CHOLELITHIASIS. Electronically Signed Chava Cedeno M.D. Gross Description Received in formalin, labeled "gallbladder," is a 6.5 x 3.0 x 2.8 cm. gallbladder with a 0.2 cm. in length stapled portion of cystic duct attached. The outer surface is siddiqui-brown with a focal defect and varies from smooth to shaggy. The lumen contains a 2.6 cm in greatest dimension siddiqui, ovoid cholelith. There is no bile present within the lumen. The mucosa is siddiqui-green with focal erosions. The wall of the gallbladder measures up to 0.8 cm. in thickness. Porcelain Enamel Laborer sections are submitted in one cassette. 03/01/2019 [facility]03/01/2019
== END 2019-03-01 13:16 | disposition home or self-care (01) | DRG 419 ==
LOC: JER 09:24 → JERBED 12:26 → J6S 15:22
PROVIDERS: ADMIT Internal Medicine; ATTEND Nurse Practitioner Family
PROC: 3E1M38Z Irrigation of Peritoneal Cavity using Irrigating Substance, Percutaneous Approach (ICD-10-PCS; 2019-02-28)
PROC: 0FT44ZZ Resection of Gallbladder, Percutaneous Endoscopic Approach (ICD-10-PCS; principal; 2019-02-28 12:45)
DX: K80.00 Calculus of gallbladder with acute cholecystitis without obstruction (principal); E66.9 Obesity, unspecified; Z68.27 Body mass index [BMI] 27.0-27.9, adult
CPT/HCPCS: 36415; 71045-TC-FY; 74177-TC; 76705-TC; 76830-TC; 78226-TC; 80053; 81003; 83036; 83605; 83690; 83735; 84484; 85025; 85610; 86850; 86900; 86901; 87086; 93005; 93010; 94010; 94760; 99284-25; A9537; J0131; J7030

== ENCOUNTER 2019-11-10 21:04 | Emergency (ER) | payer BC ==
[2019-11-10 21:09] VITALS: BP 115/64; PULSE 85; TEMP 98; BMI 29.0
--- NOTE | 2019-11-10 21:29 | PDOC ---
Attending Attestation - Resident Resident Name: Gary Whitaker - ED Attending Attestation I have performed the following: I have examined & evaluated the patient, The case was reviewed & discussed with the resident, I agree w/resident's findings & plan - HPI HPI: 11/10/19 22:39 Pt comes with a new rash around her herpetic lesions. Left T1 dermatome involved. Pt is on day #3 of Valtrex 1g TID. - Physicial Exam PE: 11/10/19 22:40 Pt has shingles in the T1 dermatome on the left side of her body with new surrounding cellulitis. Pt will be sent home with keflex. - Medical Decision Making 11/10/19 22:41 Pt advised to get a PMD and to get treatment for potential postherpetic neuralgia, and to get her shingles vaccine after this is over Discharge - Discharge Information Problems reviewed: Yes Clinical Impression/Diagnosis: Shingles Qualifiers: Herpes zoster complications: without complications Qualified Code(s): B02.9 - Zoster without complications Cellulitis Qualifiers: Site of cellulitis: unspecified site Qualified Code(s): L03.90 - Cellulitis, unspecified Condition: Stable Disposition: HOME - Additional Discharge Information Prescriptions: Cephalexin [Keflex] 250 mg PO TID #21 capsule - Follow up/Referral - Patient Discharge Instructions Patient Printed Discharge Instructions: DI for Shingles Additional Instructions: Today you were seen for shingles. You are already taking the best medicine for shingles, and have not yet completed the full 7 day course. At home, take the Valtrex three times a day until you have taken them all. The rash will go away w ith time, and begin to change and appear to have a yellow crust over them which is a sign of improvement. You may also have a skin infection over the shingles, and we have sent a prescription for Keflex, an antibiotic, please take it as prescribed in addition to the Valtrex. Take Tylenol and Motrin as you have been for pain. If your rash does not improve, see your regular doctor or return to the emergency room for further treatment. - Post Discharge Activity Work/Back to School Note: Back to Work
--- NOTE | 2019-11-10 21:33 | PDOC ---
History of Present Illness - General Chief Complaint: Rash Stated Complaint: SENT BY PCP/SHINGLES Time Seen by Provider: 11/10/19 21:22 History Source: Patient Exam Limitations: No Limitations - History of Present Illness Initial Comments: 11/10/19 21:33 Amy Lucero is an otherwise healthy 64F presenting with worsening shingles. Patient began having T1 distribution erythematous/vesicular rash to chest/back/under arm. Saw Urgent Care 3 days ago, diagnosed with shingles, started on valacyclovir TID, has taken 3 days so far in 7 day course. Came to be evaluated today for worsening rash and pain despite taking medicines. Denies fever/chills, N/V, chest pain, C/D, abd pain, dizziness, vision/hearing changes, or rash to any other locations. No other PMH or medications taken. PSH cholecystectomy. No allergies. Denies alcohol/drugs/tobacco. Past History - Medical History Allergies/Adverse Reactions: Allergies Allergy/AdvReac Type Severity Reaction Status Date / Time No Known Allergies Allergy Verified 11/10/19 21:10 Home Medications: Ambulatory Orders Amoxicillin/Potassium Clav [Augmentin 875-125 Tablet] 1 each PO BID 5 Days #10 tablet 02/28/19 Amoxicillin/Potassium Clav [Augmentin 875-125 Tablet] 1 each PO BID #10 tablet 03/01/19 Cephalexin [Keflex] 250 mg PO TID #21 capsule 11/10/19 COPD: No - Surgical History Cardiac Surgery: No - Immunization History Immunization Up to Date: No - Psycho-Social/Smoking History Smoking History: Never smoked Have you smoked in the past 12 months: No - Substance Abuse Hx (Audit-C & DAST Scrn) How often the patient has a drink containing alcohol: Never Score: In Men: 4 or > Positive; In Women: 3 or > Positive: 0 Screen Result (Pos requires Nsg. Audit-10AR): Negative Review of Systems - Review of Systems Able to Perform ROS?: Yes Constitutional: No: Symptoms Reported HEENTM: No: Symptoms Reported Respiratory: No: Symptoms reported Cardiac (ROS): No: Symptoms Reported ABD/GI: No: Symptoms Reported : No: Symptoms Reported Musculoskeletal: No: Symptoms Reported Integumentary: Yes: Lesions, Rash Neurological: No: Symptoms reported Endocrine: No: Symptoms Reported Hematologic/Lymphatic: No: Symptoms Reported All Other Systems: Reviewed and Negative *Physical Exam - Vital Signs Last Vital Signs Temp Pulse Resp BP Pulse Ox 98 F 85 18 115/64 98 11/10/19 21:07 11/10/19 21:07 11/10/19 21:07 11/10/19 21:07 11/10/19 21:07 - Physical Exam General Appearance: Yes: Nourished, Appropriately Dressed, Obese, Other (sitting in bed in NAD). No: Apparent Distress HEENT: positive: EOMI, CHESTER, Normal Voice, Symmetrical, TMs Normal, Pharynx Normal, Hearing Grossly Normal. negative: Scleral Icterus (R), Scleral Icterus (L), Pharyngeal Erythema, Tonsillar Exudate, Tonsillar Erythema, Lesions Neck: positive: Normal Thyroid, Supple. negative: Tender, Lymphadenopathy (R), Lymphadenopathy (L) Respiratory/Chest: positive: Lungs Clear, Normal Breath Sounds. negative: Chest Tender, Respiratory Distress, Accessory Muscle Use, Crackles, Rales, Rhonchi, Stridor, Wheezing Cardiovascular: positive: Regular Rhythm, Regular Rate. negative: Murmur Gastrointestinal/Abdominal: positive: Normal Bowel Sounds, Flat, Soft. negative: Tender, Organomegaly, Pulsatile Mass, Guarding, Rebound Musculoskeletal: positive: Normal Inspection. negative: CVA Tenderness, CVA Tenderness (L), Decreased Range of Motion, Vertebral Tenderness Extremity: positive: Normal Capillary Refill, Normal Inspection, Normal Range of Motion, Pelvis Stable, Pedal Edema, Swelling. negative: Tender, Calf Tenderness Integumentary: positive: Normal Color, Dry, Warm, Rash (erythema with vesicular lesions to left T1 distribution back, under arms, and chest, some crusted lesions but mostly erythematous, other side unaffected) Neurologic: positive: Fully Oriented, Alert, Normal Mood/Affect, Normal Response Medical Decision Making - Medical Decision Making 11/10/19 21:33 Patient presents with varicella zoster to left T1 distribution under arms, chest, back, already on Valtrex TID and is on day 3/7 of treatment. No other symptoms, no new lesions per patient, VSS. No facial lesions, TM normal. Possible cellulitis surrounding vesicles, treating with Keflex PO. Likely no other treatment needed for shingles, has not failed outpatient management yet. Can follow-up with PMD for further follow-up. Patient took home Valtrex in ED. Discharge - Discharge Information Problems reviewed: Yes Clinical Impression/Diagnosis: Shingles Qualifiers: Herpes zoster complications: without complications Qualified Code(s): B02.9 - Zoster without complications Cellulitis Qualifiers: Site of cellulitis: unspecified site Qualified Code(s): L03.90 - Cellulitis, unspecified - Additional Discharge Information Prescriptions: Cephalexin [Keflex] 250 mg PO TID #21 capsule - Follow up/Referral - Patient Discharge Instructions Patient Printed Discharge Instructions: DI for Shingles Additional Instructions: Today you were seen for shingles. You are already taking the best medicine for shingles, and have not yet completed the full 7 day course. At home, take the Valtrex three times a day until you have taken them all. The rash will go away with time, and begin to change and appear to have a yellow crust over them which is a sign of improvement. You may also have a skin infection over the shingles, and we have sent a prescription for Keflex, an antibiotic, please take it as prescribed in addition to the Valtrex. Take Tylenol and Motrin as you have been for pain. If your rash does not improve, see your regular doctor or return to the emergency room for further treatment. - Post Discharge Activity Work/Back to School Note: Back to Work
[2019-11-10] MEDS ORDERED: CEPHALEXIN MONOHYDRATE 500 MG CAPSULE (UD) PO ONE (22:32)
[2019-11-10] MEDS ORDERED: CEPHALEXIN MONOHYDRATE 500 MG CAPSULE (UD) ONE (22:34)
[2019-11-10] MEDS ORDERED: valACYclovir HCL 1000 MG TABLET PO ONE (22:37)
== END 2019-11-10 23:03 | disposition home or self-care (01) ==
LOC: JER 21:04
DX: B02.9 Zoster without complications (principal); L03.90 Cellulitis, unspecified
CPT/HCPCS: 99284-25

== ENCOUNTER 2020-03-15 04:16 | Day surgery (SDC) | payer BC ==
[2020-03-13 14:03] VITALS: BMI 29.0
[2020-03-15] MEDS ORDERED: DEXAMETHASONE SOD PHOSPHATE/PF 10 MG/ML SDV ONE (07:17)
[2020-03-15] MEDS ORDERED: LIDOCAINE HCL/PF 1% SDV 5ML VIAL ONE (07:17)
[2020-03-15] MEDS ORDERED: BUPIVACAINE HCL/PF 0.25% (2.5MG/ML) 10 ML VIAL ONE (07:17)
[2020-03-15] MEDS ORDERED: BUPIVACAINE HCL/PF 0.75% 10 ML VIAL ONE (07:17)
[2020-03-15] MEDS ORDERED: IOHEXOL 180 MG/1 ML ML IJ ONE ×2 (09:02)
[2020-03-15] MEDS ORDERED: LIDOCAINE 1% P/F 10 MG/ML VIAL INF ONE (09:02)
[2020-03-15] MEDS ORDERED: DEXAMETHASONE SOD PHOSPHATE 4 MG/1 ML VIAL IVPUSH ONE (09:03)
[2020-03-15 09:41] VITALS: TEMP 97.8
[2020-03-15 11:00] VITALS: BP 138/90; PULSE 74
== END 2020-03-15 11:01 | disposition home or self-care (01) ==
LOC: JASU-SURG 04:16
PROVIDERS: ATTEND Pain Medicine Pain Medicine
PROC: 3E0R33Z Introduction of Anti-inflammatory into Spinal Canal, Percutaneous Approach (ICD-10-PCS; 2020-03-15)
PROC: B01BZZZ Fluoroscopy of Spinal Cord (ICD-10-PCS; 2020-03-15)
PROC: 3E0R3BZ Introduction of Anesthetic Agent into Spinal Canal, Percutaneous Approach (ICD-10-PCS; principal; 2020-03-15 09:00)
DX: M54.14 Radiculopathy, thoracic region (principal)
CPT/HCPCS: 76000-TC-FY